=== PATIENT | female | born 1950 | race Caucasian/White ===

== ENCOUNTER 2024-08-05 10:39 | Emergency (ER) | payer MEDICARE, OTHER, SELFPAY ==
[2024-08-05] VITALS (17 sets, daily range): BP systolic 101–144; BP diastolic 70–90; PULSE 100–114; RESP 18–20; TEMP 36.6–37; O2SAT 91–98; BMI 34.3
--- NOTE | 2024-08-05 11:04 | CRLHL7_ITS ---
For Patients: As a result of the Century Cures Act, medical imaging exams and procedure reports are released immediately into your electronic medical record. You may view this report before your referring provider. If you have questions, please contact your health care provider. Indication: Hip and right leg pain, fall 1 ago Technique: Right femur 5 views. Comparison: Concurrent hip radiograph Findings: Bones: Diffuse osteopenia may limit evaluation of subtle nondisplaced fractures. There is a subtle linear lucency within the right greater trochanter which may represent superimposition of overlapping tissue. Alignment is normal. Joint spaces: Moderate medial and lateral compartment joint space narrowing of the knee. Soft tissues: Vascular calcifications. Impression: Diffuse osteopenia may limit evaluation of subtle nondisplaced fractures. There is a subtle linear lucency within the right greater trochanter which may represent superimposition of overlapping tissue. Consider dedicated right hip CT for further evaluation if there is continued clinical concern for acute fracture. Dictated by Reyna Perdomo MD @ 08/05/2024 12:03:02 PM (Electronically Signed)
--- NOTE | 2024-08-05 11:04 | CRLHL7_ITS ---
For Patients: As a result of the Century Cures Act, medical imaging exams and procedure reports are released immediately into your electronic medical record. You may view this report before your referring provider. If you have questions, please contact your health care provider. Indication: Hip and right leg pain, fall 1 week ago Technique: Pelvis 1 view Comparison: Concurrent right femur radiographs Findings: Bones: Diffuse osteopenia limits evaluation of subtle nondisplaced fractures. There is a linear lucency within the right greater trochanter which may represent superimposition of overlapping tissues. Alignment is normal. No fractures or bone lesions. Joint spaces: Mild bilateral hip degenerative change. Soft tissues: Vascular calcifications. Impression: Diffuse osteopenia limits evaluation of subtle nondisplaced fractures. There is a linear lucency within the right greater trochanter which may represent superimposition of overlapping tissues. Consider further evaluation with dedicated right hip CT if there is continued clinical concern for acute fracture Dictated by Reyna Perdomo MD @ 08/05/2024 12:05:40 PM (Electronically Signed)
--- NOTE | 2024-08-05 11:06 | ED_ITS ---
HPI - Extremity Injury (Lower) General Date Seen: 08/05/24 Chief Complaint: Extremity Pain/Injury, Lower Stated Complaint: R leg pain Time Seen by Provider: 08/05/24 10:54 Source: patient Mode of arrival: ambulatory Limitations: no limitations History of Present Illness HPI Narrative: Patient is a 73-year-old female presenting to emergency department for right leg and hip pain. She states a week ago she had a slight dizzy spell causing her to fall on her right side. Denies hitting her head. She has continued to have pain since then but mostly in the thigh. Denies any knee pain. Has been able to ambulate since the home. No further episodes of dizziness. Denies weakness, numbness. She is want to get checked out make sure there are no underlying small fractures. Related Data Allergies Allergy/AdvReac Type Severity Reaction Status Date / Time No Known Drug Allergies Allergy Verified 08/05/24 14:51 Review of Systems Narrative: Pertinent systems reviewed and were negative unless stated in HPI Exam Narrative: Exam Narrative: Const: Well-nourished, Well-developed, in mild distress Eyes: PERRL, no conjunctival injection, and symmetrical lids HENT: Atraumatic external nose and ears. Moist mucous membranes. Neck: Symmetric, trachea midline, No thyromegaly. CVS: RRR, No murmurs or gallops. Peripheral pulses 2+ and equal in all extremities RESP: Unlabored respiratory effort. Clear to auscultation bilaterally. GI: Nontender/Nondistended, No rebound or guarding. MSK:Extremities w/o deformity, Normal Active ROM, tenderness to palpation to the bruised area of the right thigh. Mild swelling noted to right leg Skin: Warm, Dry. Large bruise noted lateral right thigh Neuro: Normal Muscle tone, No focal neurological deficits. Psych: Awake, Alert, & Oriented x3. Appropriate mood and affect. Const: Vital Signs, click to edit/add: Vital Signs - 24 hr 08/05/24 10:48 08/05/24 11:56 08/05/24 12:04 Temperature 97.9 F 98.6 F Pulse Rate 103 H Pulse Rate [Pulse Oximeter] 100 104 H Respiratory Rate 18 20 Blood Pressure [Ri ght Forearm] 101/70 144/90 H Pulse Oximetry 93 94 94 Oxygen Delivery Me thod Room Air Room Air 08/05/24 12:15 11/07/24 12:30 08/05/24 12:45 Temperature Pulse Rate 105 H 109 H 109 H Pulse Rate [Pulse Oximeter] Respiratory Rate Blood Pressure [Ri ght Forearm] Pulse Oximetry 95 95 92 Oxygen Delivery Me thod 08/05/24 13:01 08/05/24 13:15 08/05/24 13:32 Temperature Pulse Rate 108 H 105 H 114 H Pulse Rate [Pulse Oximeter] Respiratory Rate Blood Pressure [Ri ght Forearm] Pulse Oximetry 92 91 93 Oxygen Delivery Me thod 08/05/24 13:45 08/05/24 14:00 08/05/24 14:24 Temperature Pulse Rate 107 H 107 H Pulse Rate [Pulse Oximeter] Respiratory Rate Blood Pressure [Ri ght Forearm] Pulse Oximetry 94 96 95 Oxygen Delivery Me thod 08/05/24 14:55 08/05/24 15:00 08/05/24 15:15 Temperature Pulse Rate 111 H 111 H 101 H Pulse Rate [Pulse Oximeter] Respiratory Rate Blood Pressure [Ri ght Forearm] Pulse Oximetry 94 96 96 Oxygen Delivery Me thod 08/05/24 15:30 08/05/24 15:45 Temperature Pulse Rate 104 H 103 H Pulse Rate [Pulse Oximeter] Respiratory Rate Blood Pressure [Ri ght Forearm] Pulse Oximetry 97 98 Oxygen Delivery Me thod Course Vital Signs Vital signs: Initial Vital Signs Temperature 97.9 F 08/05/24 10:48 Temperature Source Temporal Artery Scan 08/05/24 10:48 Pulse Rate 100 08/05/24 10:48 Respiratory Rate 18 08/05/24 10:48 Blood Pressure 101/70 08/05/24 10:48 Blood Pressure Mean 80 08/05/24 10:48 Pulse Oximetry 93 08/05/24 10:48 Oxygen Delivery Method Room Air 08/05/24 10:48 Vital Signs Temperature 97.9 F 08/05/24 10:48 Pulse Rate 100 08/05/24 10:48 Respiratory Rate 18 08/05/24 10:48 Blood Pressure 101/70 08/05/24 10:48 Pulse Oximetry 93 08/05/24 10:48 Oxygen Delivery Method Room Air 08/05/24 10:48 Temperature 98.6 F 08/05/24 11:56 Pulse Rate 103 H 08/05/24 15:45 Respiratory Rate 20 08/05/24 11:56 Blood Pressure 144/90 H 08/05/24 11:56 Pulse Oximetry 98 08/05/24 15:45 Oxygen Delivery Method Room Air 08/05/24 11:56 MDM - Extremity Injury (Lower) MDM Narrative Medical decision making narrative: Patient is a 73-year-old female initially presenting for right hip pain only. Her pain was notable mainly to the area of bruising. This is about the mid lateral thigh. Did an x-ray of the right hip and right femur. X-rays returned showing a possible home greater trochanteric fracture. CT scan will be ordered. After the x-rays were done of the patient started complaining about some minor shortness of breath. She states this shortness of breath is been going on for past day or 2. She states she does have a history of being short of breath but this seems worse. She is satting 94% on room air. Gone through her chart and epic she was previously on Lasix for CHF and lisinopril, warfarin, metoprolol for hypertension an a paroxysmal AFib. She states she is currently only taking a statin. Last saw her primary care provider back in April. The differential diagnosis of shortness of breath is broad and includes common etiologies such as COPD, asthma, pneumonia, viral syndrome, etc. More serious etiologies c onsidered include PE, CHF, coronary artery disease, pneumothorax, aortic dissection, aortic aneurysm. She does have some mild swelling right lower leg which initially was likely from the of fall the considering the shortness of breath I will do an ultrasound to rule out DVT. Also do an EKG, troponin, CBC, BMP, BNP, COVID/flu/RSV and will CT the right hip. She does have asthma but lungs sound relatively clear and asthma exacerbation seems unlikely. She does take care albuterol at home for it. D-dimer came back elevated the CTA will be ordered of the chest. BNP is elevated at 41,400. Her lower extremity swelling is located mostly just to the right leg. CT scan of the right hip shows a comminuted nondisplaced greater trochanteric fracture. She has been able to ambulate of this for the past week. He her troponin came back elevated at 1.40. I was able to look at her previous charge showing she had am NSTEMI at the [facility] related to rhabdomyolysis. No heart catheterization was done but an echo at that time showing EF 43%. She is not currently taking Lasix she states. I spoke to the on-call dairy tester at [place] and due to her declining troponin from 1.4 to 1.3 he is comfortable the patient being discharged. He does see in his history that she has a mechanical heart valve. When I spoke to a she was not aware she had 1 or not. He states if she does have this may can of heart valve she really needs to be back on warfarin. Also recommends and outpatient echocardiogram. I did spoke to Orthopedics about her fracture and they are agreeable that she is safe for discharge. She will follow up with them outpatient. Is recommended she does weight-bearing as tolerated. We did ambulate the patient in she did move slow but her and her niece are comfortable with discharge at this time. Did offer possible admission. Would prefer to be discharged. I spoke to her about needing to have close follow-up with her primary care provider. The patient's niece, who is staying with her for the weekend, will call tomorrow to try and set up an appointment. We also left a message with the patient's primary care provider that she needs close follow-up. Will that them restart the patient's warfarin. I will though prescribe her oxycodone for her pain. Did explained that this can cause increased chance of falls and to be careful when taking it. They state they understand. Lab Data Labs: Lab Results 08/05/24 08/05/24 08/05/24 Range/Units 12:14 12:25 12:45 WBC 8.90 (4.50-11.00) K/uL RBC 4.53 (4.00-5.20) m/uL Hgb 13.9 (12.0-16.0) gm/dL Hct 43.1 (33.0-51.0) % MCV 95 (80-100) fL MCH 31 (26-34) pg MCHC 32 (32-36) gm/dL RDW Coeff of Gilbert 13.2 (11.5-15.5) % Plt Count 169 (140-440) K/uL Neut % (Auto) 78.6 H (42.0-72.0) % Lymph % (Auto) 12.6 L (20-44) % [place] % (Auto) 7.5 (0.0-11.0) % Eos % (Auto) 0.7 (0.0-7.0) % Baso % (Auto) 0.4 (0.0-3.0) % Neut # (Auto) 7.00 (1.7-7.0) K/uL Lymph # (Auto) 1.10 (0.90-2.90) K/uL [place] # (Auto) 0.70 (0.00-0.90) K/UL Eos # (Auto) 0.06 (0.00-0.50) K/uL Baso # (Auto) 0.04 (0.00-0.30) K/uL Abs Immat Gran (auto) 0.02 (0.00-0.30) K/uL Imm/Tot Granulo (auto) 0.2 % D-Dimer Quant (PE/DVT) 1.66 H (0.00-0.50) ug/ml Sodium 136 (135-149) mmol/L Potassium 3.6 (3.6-5.1) mmol/L Chloride 100 (96-114) mmol/L Carbon Dioxide 26 (20-32) mmol/L Anion Gap 10 (7-15) mEq/L BUN 20 (7-30) mg/dL Creatinine 1.0 (0.5-1.5) mg/dL Estimated Creat Clear 41.97 Estimated GFR 59 ml/min Glucose 150 H (60-115) mg/dL Calcium 9.0 (8.4-10.6) mg/dL Troponin I 1.40 H* (0.01-0.04) ng/mL NT-Pro-B Natriuret Pep 36457 pg/mL SARS-CoV-2 (PCR) Negative SARS-CoV-2 (Negative) Influenza Type A (PCR) Negative PCR FLU A (Negative) Influenza Type B (PCR) Negative PCR FLU B (Negative) RSV (PCR) Negative PCR RSV (Negative) Lab Acknowledgement Test Added POC Troponin I 1.32 H (0.01-0.04) ng/ml 08/05/24 Range/Units 14:42 WBC (4.50-11.00) K/uL RBC (4.00-5.20) m/uL Hgb (12.0-16.0) gm/dL Hct (33.0-51.0) % MCV (80-100) fL MCH (26-34) pg MCHC (32-36) gm/dL RDW Coeff of Gilbert (11.5-15.5) % Plt Count (140-440) K/uL Neut % (Auto) (42.0-72.0) % Lymph % (Auto) (20-44) % [place] % (Auto) (0.0-11.0) % Eos % (Auto) (0.0-7.0) % Baso % (Auto) (0.0-3.0) % Neut # (Auto) (1.7-7.0) K/uL Lymph # (Auto) (0.90-2.90) K/uL [place] # (Auto) (0.00-0.90) K/UL Eos # (Auto) (0.00-0.50) K/uL Baso # (Auto) (0.00-0.30) K/uL Abs Immat Gran (auto) (0.00-0.30) K/uL Imm/Tot Granulo (auto) % D-Dimer Quant (PE/DVT) (0.00-0.50) ug/ml Sodium (135-149) mmol/L Potassium (3.6-5.1) mmol/L Chloride (96-114) mmol/L Carbon Dioxide (20-32) mmol/L Anion Gap (7-15) mEq/L BUN (7-30) mg/dL Creatinine (0.5-1.5) mg/dL Estimated Creat Clear Estimated GFR ml/min Glucose (60-115) mg/dL Calcium (8.4-10.6) mg/dL Troponin I 1.30 H* (0.01-0.04) ng/mL NT-Pro-B Natriuret Pep pg/mL SARS-CoV-2 (PCR) (Negative) Influenza Type A (PCR) (Negative) Influenza Type B (PCR) (Negative) RSV (PCR) (Negative) Lab Acknowledgement POC Troponin I (0.01-0.04) ng/ml Imaging Data X-ray right hip: Attestation: I have reviewed the pertinent imaging results. Radiologist's impression: Diffuse osteopenia limits evaluation of subtle nondisplaced fractures. There is a linear lucency within the right greater trochanter which may represent superimposition of overlapping tissues. Consider further evaluation with dedicated right hip CT if there is continued clinical concern for acute fracture Dictated by Reyna Perdomo MD @ 08/05/2024 12:05:40 PM X-ray right femur: Attestation: I have reviewed the pertinent imaging results. Radiologist's impression: Diffuse osteopenia may limit evaluation of subtle nondisplaced fractures. There is a subtle linear lucency within the right greater trochanter which may represent superimposition of overlapping tissue. Consider dedicated right hip CT for further evaluation if there is continued clinical concern for acute fracture. Dictated by Reyna Perdomo MD @ 08/05/2024 12:03:[address] scan right hip: Attestation: I have reviewed the pertinent imaging results. Radiologist's impression: Nondisplaced mildly comminuted fracture of the greater trochanter with surrounding soft tissue stranding. Please note that all CT scans at this facility use dose modulation, iterative reconstruction, and/or weight-based dosing when appropriate to reduce radiation dose to as low as reasonably achievable. Dictated by Chelsie Brewer MD @ 08/05/2024 1:23:03 PM Ultrasound right lower extremity: Attestation: I have reviewed the pertinent imaging results. Radiologist's impression: No evidence of acute deep venous thrombosis in the right lower extremity. Dictated by Andrea Matta MD @ 08/05/2024 1:00:36 PM CTA chest: Attestation: I have reviewed the pertinent imaging results. Radiologist's impression: 1. Trace pulmonary edema and bilateral pleural effusions. 2. No evidence of pulmonary embolus. Dictated by Chirag Honeycutt MD @ 08/05/2024 3:04:37 PM Please note that all CT scans at this facility use dose modulation, iterative reconstruction, and/or weight-based dosing when appropriate to reduce radiation dose to as low as reasonably achievable. Dictated by: Chirag Honeycutt MD @ 08/05/2024 15:05:23 ECG Data Attestation: I personally reviewed and interpreted this ECG as follows: Prior ECG tracings: not available for review Interpretation: Initial EKG at 12:50: Sinus tachycardia with rate of 106 beats per minute, normal intervals, normal axis, no ST or T-wave abnormalities. V1 V2 show Q- waves Repeat EKG done at 14:05: Sinus tachycardia with rate 107 beats per minute, Q- waves still seen and V1 and V2. PVCs. Normal axis, normal intervals, no ST or T-wave abnormalities Discharge Plan Discharge Clinical Impression: Closed fracture of greater trochanter of femur Qualifiers: Encounter type: initial encounter Fracture alignment: nondisplaced Laterality: right Qualified Code(s): S72.114A - Nondisplaced fracture of greater trochanter of right femur, initial encounter for closed fracture CHF (congestive heart failure) Qualifiers: Heart failure type: unspecified Heart failure chronicity: chronic Qualified Code(s): I50.9 - Heart failure, unspecified Patient Disposition: Home, Self-Care Condition: Stable Additional Instructions: See your CT scan shows a nondisplaced hip fracture. Orthopedics states he should wait bear as tolerated as that is better than keeping the leg held up in the air. Follow-up with [facility]. Call them at . Use the oxycodone as needed for pain but make sure you were careful with it as it can increase her risk of falls. Can either take a whole pill or half a pill. Do recommend trying Tylenol and ibuprofen 1st for the pain. You also appear to have congestive heart failure. I would speak to your primary care provider about restarting Lasix regularly. There was some fluid in your lungs that is likely was causing her mild shortness of breath and your BNP, which is a marker for CHF, is quite elevated at 41,400. You did have an elevated troponin but on recheck it actually decreased. Cardiology please or safe for discharge but does think you need an outpatient echocardiogram. Also they believe you need to be back on the warfarin regular due to your mechanical heart valve. Speak to your primary care provider about all of this. Return to emergency department for any new or worsening symptoms. Follow Up/Referrals: Provider,Not a Local [Primary Care Provider] - Stand Alone Forms: [employer] Info Instructions
--- OUTSIDE RECORDS SUMMARY | 2024-08-05 11:54 | XMS_ITS | Clinical Summary ---
Author Organization [email or web address] [facility] Address [place], [place] [address] Care Team Providers Care Licensed Embalmer Name Role Phone Bob Harrison V Unavailable [phone] Shruti Sheikh DO Primary Care Provider Allergies Active Allergy Reactions Criticality Noted Date Comments Cats (Fur, Dander, Saliva) Shortness Of Breath 04/24/2018 Erythromycin Diarrhea 09/30/2006 Peanut Laryngospasm 09/30/2006 MY THROAT SWELLS UP D And C Red No.22 Tongue Swelling 10/18/2008 Fsldvyt-Yra-Pgp Reductase Inhibitors Arthralgia 05/13/2012 Sulfa (Sulfonamide Antibiotics) Respiratory Distress 09/30/2006 Cimetidine Rash 09/30/2006 Medications Medication Sig Dispensed Refills Start Date End Date Status aspirin (ECOTRIN) 81 mg enteric coated tablet Take 81 mg by mouth once daily with a meal. Active acetaminophen (TylenoL) 325 mg tablet Take 650 mg by mouth every 6 hours if needed. Max acetaminophen dose: 4000mg in 24 hrs. Active metoprolol tartrate (LOPRESSOR) 100 mg tabletIndications:Es sential hypertension Take 0.5 Tablets (50 mg) by mouth two times daily. 90 Tablet 3 11/05/2023 Active lisinopriL (PRINIVIL; ZESTRIL) 10 mg tabletIndications:Es sential hypertension Take 1 Tablet (10 mg) by mouth once daily. 90 Tablet 3 11/05/2023 Active omeprazole (PRILOSEC) 20 mg Delayed-Release capsuleIndications:G astroesophageal reflux disease without esophagitis Take 1 Capsule (20 mg) by mouth once daily before a meal. 90 Capsule 3 11/05/2023 Active pravastatin (PRAVACHOL) 40 mg tabletIndications:Hy perlipidemia, unspecified hyperlipidemia type Take 1 Tablet (40 mg) by mouth at bedtime. 90 Tablet 3 11/05/2023 Active hospital bedIndications:Fall in home, subsequent encounter,Chronic atrial fibrillation (HC),Edema, unspecified type,Gastroesophagea l reflux disease without esophagitis,History of falling,Does mobilize using walker Hospital bed with mattress and 1/2 rails. Semi-electric bed. Length of need 99 months. Bed database manager:no 1 Each 11/05/2023 Active Chair LiftIndications:Fall in home, subsequent encounter,Edema, unspecified type,Gastroesophagea l reflux disease without esophagitis,Does mobilize using walker For home use. Using walker for ambulation. 1 Each 11/05/2023 Active albuterol HFA (ProAir HFA) 90 mcg/actuation inhalerIndications:M ild persistent asthma without complication Inhale 2 Puffs by mouth every 6 hours if needed for Shortness of Breath 1st choice or Wheezing 1st choice. 42.5 g 2 02/04/2024 Active cholecalciferol, Vitamin D3, (Vitamin D-3) 5,000 unit tab tabletIndications:Vi tamin D deficiency Take 1 Tablet (5,000 units) by mouth once daily. 90 Tablet 1 02/04/2024 Active fluticasone (50 mcg per actuation) nasal solution (FLONASE)Indications :Allergic rhinitis, unspecified seasonality, unspecified trigger Inhale 1 Furlong to both nostrils once daily. 48 g 3 02/04/2024 Active fluticasone propionate (Flovent HFA) 44 mcg/Actuation inhalerIndications:A llergic rhinitis, unspecified seasonality, unspecified trigger Inhale 2 Puffs by mouth two times daily. 31.8 g 3 02/04/2024 Active furosemide (LASIX) 40 mg tabletIndications:Ed huber, unspecified type Take 1 Tablet (40 mg) by mouth once daily if needed (leg swelling). 30 Tablet 3 05/12/2024 Active cetirizine (ZyrTEC) 10 mg tabletIndications:No n-seasonal allergic rhinitis, unspecified trigger Take 1 Tablet (10 mg) by mouth once daily. 90 Tablet 3 05/12/2024 Active warfarin (COUMADIN) 2.5 mg tabletIndications:Ch ronic atrial fibrillation (HC),Anticoagulation monitoring, INR range 2-3 Take by mouth;1.25 mg (2.5 mg x 0.5) every Dede; 2.5 mg (2.5 mg x 1) all other days OR as directed. 05/13/2024 Active Active Problems Problem Noted Date Diagnosed Date Does mobilize using walker 11/05/2023 Acute cystitis with hematuria 09/26/2023 Fall 09/25/2023 Confusion 09/25/2023 Failure to thrive in adult 09/25/2023 Vitamin D deficiency 06/17/2023 Bilateral leg edema 09/05/2020 Fall at home 09/05/2020 Hoarding behavior 08/09/2020 Overview (08/15/2021): Last Assessment & Plan: Myocardial infarction type 2 08/05/2020 Overview (08/15/2021): Type II. Intertriginous candidiasis 08/05/2020 Overview (08/15/2021): Last Assessment & Plan: History of falling 08/05/2020 Overview (08/15/2021): Last Assessment & Plan: S/P aortic valve replacement with prosthetic emilio ve 11/02/2018 Diabetic peripheral neuropathy 04/24/2018 Colonoscopy refused 04/24/2018 JERICHO 04/18/2017, AHI 29 06/05/2017 Overview (06/17/2023): Doesn't use her CPAP, trouble tolerating. Fatigue 04/04/2017 Hematuria 03/16/2017 Chronic neck and back pain 08/18/2015 Morbid obesity 05/08/2015 Chronic atrial fibrillation 02/09/2015 DM (diabetes mellitus), type 2 01/13/2014 Anticoagulation monitoring, INR range 2-3 2008 POST OP ATRIAL FIBRILLATION 09/05/2007 SEVERE - 22MM ATS AVR ON 09/02/07 + ELIZABETH LIGATI ON 09/01/2007 Overview (09/07/2007): -echo 08/12/07: severe : pk grad 102 mmHg, mean grad 60 mmHg, PITO 0.6 cm2 EF 45-50% -Normal coronaries -AVR with #22 ATS Mechanical Valve - 09/02/07 and Ligation of LA Appendage -For Mechanical Aortic Valve lifelong anticoagulation needed with INR goal of 2.5 (range 2.0-3.0). ASA 81mg. -Lifelong endocarditis precautions with SBE prophylaxis. ABNORMAL STRESS TEST 09/01/2007 Overview (09/07/2007): - 07/29/07 Adenosine Myoview * med size area of mild-mod ischemic in inferior wall extending from base to apex although felt that specificity of finding was decreased by sig. 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 Last dexa 04/2024 - some improvement. Continue prolia 3 more years. Allergic rhinitis, cause unspecified 09/30/2006 Insomnia, unspecified 09/30/2006 Unspecified asthma(493.90) 09/30/2006 Esophageal reflux 09/30/2006 Resolved Problems Problem Noted Date Diagnosed Date Resolved Date Calculus of gallbladder with out mention of cholecystitis or obstruction 10/27/2008 05/28/2017 Overview (10/27/2008): Now s/p lap hola by Dr. Whaley 10/27/08. Esophageal reflux 09/30/2006 09/08/2007 Atrial fibrillation 02/08/20 16 Encounters Date Type Department Care Team Description 08/04/[address] [phone] Shruti Sheikh DO Anticoagulation (Lab orders) 07/22/[address] [phone] Shruti Sheikh DO Anticoagulation (INR OVERDUE REMINDER #4 ) 07/08/[address] [phone] Shruti Sheikh DO Anticoagulation (OVERDUE #3 Reminder ) 06/24/[address] [address] Shruti Sheikh DO Anticoagulation (INR OVERDUE REMINDER #2 ) 05/24/[address] [phone] Shruti Sheikh DO Results 05/17/2024 2:30 PM CDT Ancillary Procedure [address] [phone] 05/17/2024 1:40 PM CDT Office Visit [facility] [address] [place] [phone] Tameka Edmonds, VETO Eye Exam (Diabetic) 05/17/2024 Travel 05/12/2024 1:00 PM CDT Office Visit [address] [phone] Shruti Sheikh DO Medicare ANNUAL (subsequent) Visit; Diabetes 05/12/2024 Anticoagulation (warfarin) [address] [phone] , [facility] [place] Anticoagulation (Provider visit) 05/12/2024 Travel from Last 3 Months Immunizations Name Administration Dates Next Due COVID-19 VACCINE SPIKEVAX (M ODERNA 50MCG/0.5ML) 12YO+ PFS 07/23/2023 COVID-19 vaccine (Pfizer-Bio NTech 30mcg/0.3mL) 12YO+ BIVALENT PF, MDV 11/07/2022 COVID-19 vaccine (Pfizer-Bio NTech 30mcg/0.3mL) 12YO+ CRISTINA-SUCROSE PF, MDV 03/18/2022 COVID-19 vaccine (Pfizer-Bio NTech 30mcg/0.3mL) PF, MDV 08/15/2021,01/30/2021,01/09/2021 Hepatitis B (Adult) 01/03/1994, 3,02/21/1993,1992 Influenza A (H1N1), Inactiva kamilla (Age >=3 Years) 08/29/2009 Influenza, High-dose Inactivated 018,07/08/2016,08/09/2015,2013 Influenza, IIV3 (Age >=3 years) 07/22/20 13,08/25/2012,08/07/2011,2009,06/29/2009,08/31/2008,07/20/2007 Influenza, Inactivated AIIV4 (Age 65+ Years) Preserv Free 06/11/2023,11/07/2022,07/18/2021,2019 Influenza, Inactivated IIV3 (Age 65+ Years) Preserv Free 07/31/2017 Pneumococcal Poly,23-Valent (Pneumovax) 04/14/2014,07/22/1997 Pneumococcal conj 13-Valent (Prevnar 13) 09/04/2015 Td (Age >=7 Years) 10/27/2002,09/06/1992 Family History Medical History Relation Name Comments Cancer-colon Brother age 60's Heart Disease Father ASCVD Asthma Mother Heart Disease Mother ??? Stroke Other 1 UNCLES Diabetes Other 2 FAMILY H/O ([facility], nephew) Hypertension Other 3 FAMILY H/O Cancer Other 4 OVARIAN AUNT Cancer Other 5 STOMACH GRANDFA THER Cancer-colon Other 6 cousin Cancer-breast No Family History Relation Name Status Comments Brother Father Mother Other 1 Other 2 Other 3 Other 4 Other 5 Other 6 Social History Tobacco Use Types Packs/Day Years Used Date Smoking Tobacco: Former Cigarettes 1 20 0 09/29/1981 - 09/29/2001 Smokeless Tobacco: Never Tobacco Cessation:Counseling Given: Not Answered Alcohol Use Standard Drinks/Week Comments No 0 (1 standard drink = 0.6 oz pur e alcohol) PHQ-2 Answer Date Recorded PHQ-2 TOTAL SCORE 0 05/12/2024 Social Connections Answer Date Recorded Do you often feel lonely or isolated from those around you? 0 09/25/2023 Financial Resource Strain Answer Date R ecorded Difficulty of Paying Living Expenses 3 09/25/2023 Difficulty of Paying Living Expenses Not on file 09/25/2023 Food Insecurity Answer Date Recorded Do you worry your food will run out before you are able to buy more? 1 09/25/2023 Transportation Needs Answer Date Record ed Does lack of transportation keep you from medica l appointments? 1 09/25/2023 Does lack of transportation keep you from work, meetings or getting things that you need? 1 09/25/2023 Housing Stability Answer Date Recorded What is your housing situation today? 1 09/25/2023 Sex and Gender Information Value Date Recorded Sex Assigned at Not on file Gender Identity Not on file Sexual Orientation Not on file Obstetrics History Last Filed Vital Signs Vital Sign Reading Time Taken Comments Blood Pressure 136/84 05/12/2024 1:22 PM CDT Pulse 77 05/12/2024 1:22 PM CDT Temperature 36.8 ??C (98.3 ??F) 09/26/2023 8:00 AM CS T Respiratory Rate 20 05/12/2024 1:22 PM CDT Oxygen Saturation 96% 05/12/2024 1:22 PM CDT Inhaled Oxygen Concentration - - Weight 117.1 kg (258 lb 3.2 oz) 05/12/2024 1:22 PM CDT Height 162.6 cm (5' 4) 05/12/2024 1:22 PM CDT Body Mass Index 44.32 05/12/2024 1:22 PM CDT Plan of Treatment Upcoming Encounters Date Type Department Care Team (Late st Contact Info) Description 08/09/2024 1:30 PM INSIDE UPHOLSTERER Orders Only [address] [phone] Lab, [place] 08/10/2024 1:00 PM INSIDE UPHOLSTERER Nurse/Clinic Staff Only [address] [place] [phone] 11/17/2024 1:00 PM INSIDE UPHOLSTERER [address] [phone] Shruti Sheikh, [address] [place] [phone] Health Maintenance Due Date Last Done Comments Tdap 12/15/1959 Colonoscopy through age 75 1993 Zoster (shingles) series for age 50+ (1 of 2) 1998 Tetanus booster 10/27/2012 10/27/2002, 09/06/1992 RSV vaccine for adults or (1 - 1-dose 75+ series) 12/15/2023 COVID-19 vaccine series ( season) 2024 07/23/2023, 11/07/2022, 03/18/2022, Additional history exists Influenza for age 65+ 05/30/2024 06/11/2023 , 11/07/2022, 07/18/2021, Additional history exists BMI (ht and wt on same day) for age 18+ 05/12/2025 05/12/2024, 11/05/2023, 06/11/2023, Additional history exists Depression screening for age 12+ 05/13/2025 05/13/2024, 05/12/2024, 05/12/2024, Additional history exists Medicare Wellness for age 65+ 05/13/2025, 11/07/2022, 08/15/2021, Additional history exists Lipids for age 45-75 05/12/2029 05/12/2024, 10/16/2022, 08/15/2021, Additional history exists Pneumococcal series for age 65+ Completed 09/04/2015, 04/14/2014, 07/22/1997 Hepatitis C screening for ag e 18-79 Completed 03/12/2017 DEXA/DXA scan for age 65+ Completed 05/17/2024, 03/2017 Medical Devices Implanted Type Area Plant Health Care Technician Device Identifier Shelf Expiration Date Model / Serial / Lot Anw Hh [id number] Implanted:Qty: 1 on 09/02/2007 at [facility] Explanted:at [facility] (Quantity not on file) Open Heart Implants [facility] [id number] / [id number] / Procedures Procedure Name Priority Date/Time Associated Diagnosis Comments XR DXA BONE DENSITY 2 SITES AXIAL Routine 05/17/2024 3:07 PM CDT Senile osteoporosis URINE ALBUMIN TO CREATININE RATIO, RANDOM Routine 05/12/2024 2:07 PM CDT Type 2 diabetes mellitus without complication, without long-term current use of insulin (HC) CBC WITH AUTO DIFFERENTIAL Routine 05/12/2024 12:58 PM CDT Type 2 diabetes mellitus without complication, without long-term current use of insulin (HC) LIPID PANEL W REFLEX MEASURED LDL Routine 05/12/2024 12:58 PM CDT Type 2 diabetes mellitus without complication, without long-term current use of insulin (HC) TSH WITH REFLEX Routine 05/12/2024 12:58 PM CDT Type 2 diabetes mellitus without complication, without long-term current use of insulin (HC) COMP METABOLIC PANEL Routine 05/12/2024 12:58 PM CDT Type 2 diabetes mellitus without complication, without long-term current use of insulin (HC) CBC WITH AUTO DIFFERENTIAL Routine 05/12/2024 12:58 PM CDT Type 2 diabetes mellitus without complication, without long-term current use of insulin (HC) HEMOGLOBIN A1C MONITORING (POCT) Routine 05/12/2024 12:58 PM CDT Type 2 diabetes mellitus without complication, without long-term current use of insulin (HC) PROTIME-INR STAT 05/12/2024 12:58 PM CDT Chronic atrial fibrillation (HC) Anticoagulation monitoring, INR range 2-3 ANTI HCV Routine 03/12/2017 12:59 PM CDT Need for hepatitis C screening test from Last 3 Months or Most Recently Relevant to Health Maintenance Results * XR DXA BONE DENSITY 2 SITES AXIAL (05/17/2024 3:07 PM CDT) Anatomical Region Laterality Modality Spine, HIPS, HIPL, HIPR Computed Radiography Impressions 05/19/2024 6:30 AM CDT Osteoporosis. RECOMMENDATIONS: ??The National Osteoporosis Foundation recommends pharmacologic treatment for patients with T-scores of -2.5 or less, patients with prior history of fragility fractures, or patients with 10-year probability of greater than 3% at hips or greater than 20% of suffering major osteoporotic fractures. Recommend continued optimization of calcium and vitamin D intake through dietary means and/or supplementation and regular exercise. JUAN R MALDONADO M.D. [email or web address] [email or web address]/cale Narrative 05/19/2024 6:30 AM CDT For Patients: Results are automatically released to your [employer] account once available, in compliance with federal regulations. This means that you may see your results before your provider has had a chance to review them. Please allow 2-3 business days for your provider to comment on the results. XR DXA Bone Mineral Density (BMD) EXAM LOCATION: [address] [phone] PATIENT NAME: Charlotte Boles DATE OF : 1950 EXAM DATE: 05/17/2024 REQUESTING PROVIDER: Shruti Sheikh, DO GENDER AT : female HEIGHT: 64 inches WEIGHT: 258 pounds MENOPAUSAL STATUS: Postmenopausal ?? RACE/ETHNICITY: White ?? RISK FACTORS: Height Loss (2 inches or more), Menopause < Age 40, Smoking (prior), White Race, Estrogen Therapy and Diabetes type 2 CURRENT MEDICATION FOR BONE LOSS: Denosumab (Prolia) INDICATION: Senile osteoporosis COMPARISON DATE(S): 2016 DXA scans are compared to prior studies for a patient only when the two (or more) studies were performed on the same scanner. It is not possible to compare data generated on one scanner to data from another because there are not standards in DXA equipment. This applies even if the two scanners are made by the same food mixer repairer. PROCEDURE: Dual-energy x-ray absorptiometry performed with routine technique. Reporting is completed in the form of a T-score. The T-score represents the standard deviation from peak bone mass based on young healthy adult. A Z-score is used for diagnosis in premenopausal women, and for men under the age of 50. FINDINGS: RESULT LUMBAR SPINE L1 - L4 BMD: 0.860 g/cm2 T-Score: - 2.7 Z-Score: - 2.1 Trending: ??Change from prior in 2017: ??Increase 13.6%. ?? RESULTS FEMUR Left femoral neck BMD: 0.643 g/cm2 T-Score: - 2.8 Z-Score: - 1.7 Right femoral neck BMD: 0.626 g/cm2 T-Score: - 3.0 Z-Score: - 1.8 Left total hip BMD: 0.618 g/cm2 T-Score: - 3.1 Z-Score: - 2.2 Right total hip BMD: 0.616 g/cm2 T-Score: - 3.1 Z-Score: - 2.2 Trending: ??Total Neck Mean BMD: 0.635 g/cm2 ?? Change from prior in 2017: ??Increase 0.3%. ?? WHO criteria: Normal: T-score at or above -1 SD Osteopenia: T-score between -1.1 and -2.4 SD Osteoporosis: T-score at or below -2.5 SD Shruti Sheikh DO DEXA * (ABNORMAL) URINE ALBUMIN TO CREATININE RATIO, RANDOM (05/12/2024 2:07 PM CDT) ALB RAND URINE 69.6 mg/L 05/13/2024 2:31 PM CDT [facility] CREATININE,URIN E 1.38 g/L 05/13/2024 2:31 PM CDT [facility] ALBUMIN TO CREATININE RATIO,RAND UR 50.4(H) <30.0 mg/g creat 05/13/2024 2:31 PM CDT [facility] Urine URINE SPECIMEN / Unknown Non-Blood / Unknown 05/12/2024 2:07 PM CDT 05/12/2024 2:07 PM CDT [facility] - 05/13/2024 2:31 PM CDT If Albumin to Creatinine Ratio is elevated, consider the following: ? Elevations seen with incipient nephropathy associated ?? with diabetes mellitus or hypertension. Stress, exercise,hematuria, ?? and urinary tract infection may also produce elevated results. If clinically indicated, confirm with ?24 Hour Albumin to Creatinine Ratio. ?? Shruti Sheikh DO URINE [facility] [address] [place] [address], * (ABNORMAL) CBC WITH AUTO DIFFERENTIAL (05/12/2024 12:58 PM CDT) WHITE BLOOD COUNT 7.3 4.5 - 11.0 thou/cu mm 05/12/2024 1:24 PM [facility] RED BLOOD COUNT 4.89 4.00 - 5.20 mil/cu mm 05/12/2024 1:24 PM [facility] HEMOGLOBIN 15.2 12.0 - 16.0 g/dL 05/12/2024 1:24 PM [facility] HEMATOCRIT 46.2 33.0 - 51.0 % 05/12/2024 1:24 PM [facility] MCV 95 80 - 100 fL 05/12/2024 1:24 PM [facility] MCH 31.1 26.0 - 34.0 pg 05/12/2024 1:24 PM [facility] MCHC 32.9 32.0 - 36.0 g/dL 05/12/2024 1:24 PM [facility] RDW 13.2 11.5 - 15.5 % 05/12/2024 1:24 PM [facility] PLATELET COUNT 184 140 - 440 thou/cu mm 05/12/2024 1:24 PM [facility] MPV 11.5(H) 6.5 - 11.0 fL 05/12/2024 1:24 PM [facility] % NEUT 58.2 % 05/12/2024 1:24 PM [facility] % LYMPH 30.5 % 05/12/2024 1:24 PM [facility] % MONO 7.9 % 05/12/2024 1:24 PM [facility] % EOS 3.1 % 05/12/2024 1:24 PM [facility] % BASO 0.3 % 05/12/2024 1:24 PM [facility] ABSOLUTE NEUTROPHILS 4.3 1.7 - 7.0 thou/cu mm 05/12/2024 1:24 PM [facility] ABSOLUTE LYMPHOCYTES 2.2 0.9 - 2.9 thou/cu mm 05/12/2024 1:24 PM [facility] ABSOLUTE MONOCYTES 0.6 <0.9 thou/cu mm 05/12/2024 1:24 PM [facility] ABSOLUTE EOSINOPHILS 0.2 <0.5 thou/cu mm 05/12/2024 1:24 PM [facility] ABSOLUTE BASOPHILS 0.0 <0.3 thou/cu mm 05/12/2024 1:24 PM [facility] Blood BLOOD SPECIMEN / Unknown Venipuncture / Unknown 05/12/2024 12:58 PM CDT 05/12/2024 12:58 PM CDT Shruti Sheikh DO HEMATOLOGY [facility] [address] [place], [place] [id number] * TSH WITH REFLEX (05/12/2024 12:58 PM CDT) TSH 3.25 0.27 - 4.20 uIU/mL 05/12/2024 1:29 PM CDT [facility] Blood BLOOD SPECIMEN / Unknown Venipuncture / Unknown 05/12/2024 12:58 PM CDT 05/12/2024 12:58 PM CDT [facility] - 05/12/2024 1:29 PM CDT In Adults, TSH values between 5.00 and 10.00 uIU/ml do not necessarily indicate the presence of Hypothyroidism. Correlation with clinical findings such as presence of goiter and/or Thyroperoxidase (TPO) Antibody may be helpful. For more information please refer to NADINE 2004; 291: 228-238. Shruti Sheikh DO CHEMISTRY [facility] [address] [place] [address] * (ABNORMAL) LIPID PANEL W REFLEX MEASURED LDL (05/12/2024 12:58 PM CDT) CHOLESTEROL,TOTAL 249(H) 100 - 199 mg/dL 05/12/2024 1:29 PM [facility] Comment: Cholesterol, Total Reference Ranges Desirable <200 mg/dL Borderline 200-239 mg/dL High >=240 mg/dL TRIGLYCERIDES 219(H) <150 mg/dL 05/12/2024 1:29 PM [facility] HDL CHOLESTEROL 52 >40 mg/dL 1:29 PM [facility] NON-HDL CHOLESTEROL 197(H) <145 mg/dl 05/12/2024 1:29 PM [facility] CHOL/HDL RATIO 4.79(H) <4.50 05/12/2024 1:29 PM [facility] LDL CHOLESTEROL 153(H) <=130 mg/dL 05/12/2024 1:29 PM [facility] VLDL CHOLESTEROL 44(H) <=30 mg/dL 05/12/2024 1:29 PM [facility] PROVIDER ORDERED STATUS RANDOM 05/12/2024 1:29 PM [facility] Blood BLOOD SPECIMEN / Unknown Venipuncture / Unknown 05/12/2024 12:58 PM CDT 05/12/2024 12:58 PM CDT Shruti Sheikh DO CHEMISTRY Performing Organization Address [facility] Co de Phone Number [facility] [address] [place] [address] * (ABNORMAL) PROTIME-INR (05/12/2024 12:58 PM CDT) INR 3.9(H) <1.3 05/12/2024 1:32 PM CDT [facility] PROTIME 41.5(H) 10.3 - 12.3 sec 05/12/2024 1:32 PM CDT [facility] Blood BLOOD SPECIMEN / Unknown Venipuncture / Unknown 05/12/2024 12:58 PM CDT 05/12/2024 12:58 PM CDT Narrative [facility] - 05/12/2024 1:32 PM CDT ?Therapeutic Range 2.0-3.0 for most anticoagulated patients 2.5-3.5 or 4.0 for high risk patients The INR is only used for patients on stable oral anticoagulant therapy. It makes no significant contribution to the diagnosis or treatment of patients whose Protime is prolonged for other reasons. INR results are increased when heparin levels exceed 1.0 U/mL, which corresponds to an aPTT >125 seconds if the patient is on UFH. Shruti Sheikh DO HEMATOLOGY Performing Organization Address [facility] Co de Phone Number [facility] [address] [place] [address] * (ABNORMAL) HEMOGLOBIN A1C MONITORING (POCT) (05/12/2024 12:58 PM CDT) HEMOGLOBIN A1C MONITORING (POCT) 6.6(H) <=6.4 % 05/12/2024 1:06 PM CDT [facility] Blood BLOOD SPECIMEN / Unknown Venipuncture / Unknown 05/12/2024 12:58 PM CDT 05/12/2024 12:58 PM CDT Narrative [facility] - 05/12/2024 1:06 PM CDT ? (<=6.9%) ? Indicates good control ? (7.0% to 7.9%) ? Indicates fair control ? (>=8.0%) ? Indicates poor control ?? NOTE: ??These thresholds are guidelines and ?individual targets may vary. Falsely low levels may be seen with: Recent Transfusion, Recent Significant Blood Loss, Hemolytic Diseases, or Falsely elevated levels may be seen with: Untreated Anemias, Splenectomy ? Shruti Sheikh DO CHEMISTRY [facility] [address] [place] [address] * (ABNORMAL) COMP METABOLIC PANEL (05/12/2024 12:58 PM CDT) SODIUM 136 136 - 145 mmol/L 05/12/2024 1:43 PM [facility] POTASSIUM 4.2 3.5 - 5.1 mmol/L 05/12/2024 1:43 PM [facility] CHLORIDE 100 98 - 107 mmol/L 05/12/2024 1:43 PM [facility] CO2,TOTAL 28 22 - 29 mmol/L 05/12/2024 1:43 PM [facility] ANION GAP 8 5 - 18 05/12/2024 1:43 PM [facility] GLUCOSE 162(H) 70 - 99 mg/dL 05/12/2024 1:43 PM [facility] CALCIUM 9.5 8.8 - 10.2 mg/dL 05/12/2024 1:43 PM [facility] BUN 13 8 - 23 mg/dL 05/12/2024 1:43 PM [facility] CREATININE 1.08(H) 0.50 - 0.90 mg/dL 05/12/2024 1:43 PM T [facility] BUN/CREAT RATIO 12 10 - 20 1:43 PM T [facility] eGFR 54(L) >90 mL/min/1.7 3m2 05/12/2024 1:43 PM T [facility] Comment:As of 2021, eG FR is calculated by the CKD-EPI creatinine equation without race adjustment. ??eGFR can be influenced by muscle mass, exercise, and diet. ??The reported eGFR is an estimation only and is only applicable if the renal function is stable. ALBUMIN 3.7(L) 4.0 - 4.9 g/dL 05/12/2024 1:43 PM T [facility] PROTEIN,TOTAL 7.4 6.0 - 8.0 g/dL 05/12/2024 1:43 PM T [facility] BILIRUBIN,TOTAL 0.4 0.0 - 1.2 mg/dL 05/12/2024 1:43 PM T [facility] ALK PHOSPHATASE 100 35 - 104 IU/L 05/12/2024 1:43 PM T [facility] ALT (SGPT) <5(L) 10 - 35 IU/L 05/12/2024 1:43 PM T [facility] AST (SGOT) 19 10 - 35 IU/L 05/12/2024 1:43 PM T [facility] Blood BLOOD SPECIMEN / Unknown Venipuncture / Unknown 05/12/2024 12:58 PM CDT 05/12/2024 12:58 PM CDT Shruti Sheikh DO CHEMISTRY [facility] [address] [place] [address] * ANTI HCV (03/12/2017 12:59 PM CDT) HEPATITIS C ANTIBODY Non-Reacti ve Non-Reacti ve 03/12/2017 8:44 PM CDT [facility] Blood BLOOD SPECIMEN / Unknown Butterfly / Unknown 03/12/2017 12:59 PM CDT 03/12/2017 12:59 PM CDT Narrative [facility] - 03/12/2017 8:44 PM CDT Antibodies to HCV not detected; does not exclude the possibility of exposure to HCV. Shruti Sheikh DO SEND OUTS [facility] [address] [place] [address], from Last 3 Months or Most Recently Relevant to Health Maintenance Advance Directives * Partial Code (Latest Code Status on File) Date Activated Date Inactivated Comments 09/25/2023 4:35 PM 09/26/2023 3:50 PM Question Answer Comments Cardio Resuscitation: No Chest Compressions Ventilation: No Restrictions Drug Protocol: No Restrictions * Full Code Date Activated Date Inactivated Comments 10/27/2008 10:16 AM 10/28/2008 4:21 PM * Full Code Date Activated Date Inactivated Comments 09/01/2007 9:50 AM 09/07/2007 4:09 PM Care Teams Licensed Embalmer Relationship Specialty Start Date End Date Shruti Sheikh DO [address] [place] [address] PCP - General Internal Medicine 10/20/13 Bob Harrison V [address] [place], [place] Sewer Line Photo Inspector 05/13/12
--- OUTSIDE RECORDS SUMMARY | 2024-08-05 11:54 | XMS_ITS | Continuity of Care Document ---
Author Name [facility] Organization [facility] Care Team Providers Care Automotive Engineer Name Role Phone [facility] Unavailable Unavailable Medications Combined list of outpatient medications from Department of Defense and Veterans Affairs facilities.Medications provided include 1) outpatient medications from the last 15 months, and 2) patient-reported medications. Medication Details Route Status Patient Instructions Prescription Expires Prescription Number Last Dispense Date Ordering Provider Order Date Order Qty Source ALBUTEROL SULFATE HFA (albuterol sulfate), 90 MCG, HFA AER AD, INHALATION, [facility], 18 g CANISTER Active [id number] 2023 54 Pharmac y Data Transac tion Service Facilit y ALBUTEROL SULFATE HFA (albuterol sulfate), 90 MCG, HFA AER AD, INHALATION, [facility], 6.7 g CANISTER Active [id number] 3 2022 6.7 Pharmac y Data Transac tion Service Facilit y FLUTICASONE PROPIONATE (FLUTICASON E PROPIONATE) , 50MCG, SPRAY SUSP, NASAL, [facility]OT[facility]ILSON, 16 g AER W/ADAP Active [id number] 2023 16 Pharmac y Data Transac tion Service Facilit y FLUTICASONE PROPIONATE (FLUTICASON E PROPIONATE) , 50MCG, SPRAY SUSP, NASAL, APOT[employer] ADILSON, 16 g AER W/ADAP Active [id number] 3 2022 16 Pharmac y Data Transac tion Service Facilit y FLUTICASONE PROPIONATE HFA (fluticason e propionate) , 44 MCG, AER W/ADAP, INHALATION, [facility], 10.6 g AER W/ADAP Active [id number] 2023 10.6 Pharmac y Data Transac tion Service Facilit y FLUTICASONE PROPIONATE HFA (fluticason e propionate) , 44 MCG, AER W/ADAP, INHALATION, [facility], 10.6 g AER W/ADAP Cancele d [id number] : 2023 0 Pharmac y Data Transac tion Service Facilit y FLUTICASONE PROPIONATE HFA (fluticason e propionate) , 44 MCG, AER W/ADAP, INHALATION, [facility], 10.6 g AER W/ADAP Active [id number] 4 2023 10.6 Pharmac y Data Transac tion Service Facilit y FLUTICASONE PROPIONATE HFA (fluticason e propionate) , 44 MCG, AER W/ADAP, INHALATION, [facility], 10.6 g AER W/ADAP Active [id number] 4 2023 10.6 Pharmac y Data Transac tion Service Facilit y FUROSEMIDE (furosemide ), 40 MG, TABLET, ORAL, [employer], 1000 ea. BOTTLE Active [id number] 3 2022 30 Pharmac y Data Transac tion Service Facilit y FUROSEMIDE (furosemide ), 40 MG, TABLET, ORAL, [facility] [facility], 1000 ea. BOTTLE Cancele d [id number] : 2023 0 Pharmac y Data Transac tion Service Facilit y FUROSEMIDE (furosemide ), 40 MG, TABLET, ORAL, [facility], 1000 ea. BOTTLE Active [id number] 2023 30 Pharmac y Data Transac tion Service Facilit y FUROSEMIDE (furosemide ), 40 MG, TABLET, ORAL, [facility], 1000 ea. BOTTLE Active [id number] 2023 30 Pharmac y Data Transac tion Service Facilit y LIDOCAINE (LIDOCAINE) , 5%(700MG), ADH. PATCH, TOPICAL, [facility]AL[facility], 30 ea. BOX Active [id number] 2023 10 Pharmac y Data Transac tion Service Facilit y LISINOPRIL (lisinopril ), 10 MG, TABLET, ORAL, [facility], 1000 ea. BOTTLE Active [id number] 3 2022 30 Pharmac y Data Transac tion Service Facilit y LISINOPRIL (lisinopril ), 10 MG, TABLET, ORAL, [facility], 1000 ea. BOTTLE Active [id number] 2023 30 Pharmac y Data Transac tion Service Facilit y METFORMIN HCL (metformin HCl), 500 MG, TABLET, ORAL, [employer], 1000 ea. BOTTLE Active [id number] 2022 30 Pharmac y Data Transac tion Service Facilit y METOPROLOL TARTRATE (metoprolol tartrate), 100 MG, TABLET, ORAL, [employer] 100 ea. BOTTLE Active [id number] 2023 30 Pharmac y Data Transac tion Service Facilit y METOPROLOL TARTRATE (metoprolol tartrate), 100 MG, TABLET, ORAL, [employer] 1000 ea. BOTTLE Cancele d [id number] : 2023 0 Pharmac y Data Transac tion Service Facilit y METOPROLOL TARTRATE (METOPROLOL TARTRATE), 50MG, TABLET, ORAL, [employer] [facility], 1000 ea. BOTTLE Active [id number] 2022 60 Pharmac y Data Transac tion Service Facilit y METOPROLOL TARTRATE (METOPROLOL TARTRATE), 50MG, TABLET, ORAL, [employer] PHAR, 1000 ea. BOTTLE Active [id number] 2023 60 Pharmac y Data Transac tion Service Facilit y OMEPRAZOLE (omeprazole ), 20 MG, CAPSULE DR, ORAL, [employer], 1000 ea. BOTTLE Active [id number] 2022 30 Pharmac y Data Transac tion Service Facilit y OMEPRAZOLE (omeprazole ), 20 MG, CAPSULE , ORAL, [employer], 1000 ea. BOTTLE Active [id number] 4 2023 30 Pharmac y Data Transac tion Service Facilit y PRAVASTATIN SODIUM (PRAVASTATI N SODIUM), 40MG, TABLET, ORAL, [employer], 1000 ea. BOTTLE Active [id number] 2023 90 Pharmac y Data Transac tion Service Facilit y PRAVASTATIN SODIUM (PRAVASTATI N SODIUM), 40MG, TABLET, ORAL, [employer], 1000 ea. BOTTLE Active [id number] 2023 90 Pharmac y Data Transac tion Service Facilit y ROSUVASTATI N CALCIUM (rosuvastat in calcium), 5 MG, TABLET, ORAL, [employer], 500 ea. BOTTLE Active [id number] 3 2022 30 Pharmac y Data Transac tion Service Facilit y WARFARIN SODIUM (WARFARIN SODIUM), 1 MG, TABLET, ORAL, [employer], 1000 ea. BOTTLE Active [id number] 4 2023 5 Pharmac y Data Transac tion Service Facilit y WARFARIN SODIUM (WARFARIN SODIUM), 2.5 MG, TABLET, ORAL, [employer], 1000 ea. BOTTLE Active [id number] 2023 8 Pharmac y Data Transac tion Service Facilit y WARFARIN SODIUM (WARFARIN SODIUM), 2.5 MG, TABLET, ORAL, [employer], 1000 ea. BOTTLE Active [id number] 2023 5 Pharmac y Data Transac tion Service Facilit y WARFARIN SODIUM (WARFARIN SODIUM), 2.5 MG, TABLET, ORAL, [employer], 1000 ea. BOTTLE Active [id number] 2023 5 Pharmac y Data Transac tion Service Facilit y WARFARIN SODIUM (WARFARIN SODIUM), 2.5 MG, TABLET, ORAL, [employer], 1000 ea. BOTTLE Active [id number] 2022 6 Pharmac y Data Transac tion Service Facilit y WARFARIN SODIUM (WARFARIN SODIUM), 2.5 MG, TABLET, ORAL, [employer], 1000 ea. BOTTLE Active [id number] 4 2023 97 Pharmac y Data Transac tion Service Facilit y WARFARIN SODIUM (WARFARIN SODIUM), 2.5 MG, TABLET, ORAL, [employer], 1000 ea. BOTTLE Active [id number] 2023 90 Pharmac y Data Transac tion Service Facilit y WARFARIN SODIUM (WARFARIN SODIUM), 3 MG, TABLET, ORAL, [employer], 1000 ea. BOTTLE Active [id number] 2023 6 Pharmac y Data Transac tion Service Facilit y WARFARIN SODIUM (WARFARIN SODIUM), 3 MG, TABLET, ORAL, [employer], 1000 ea. BOTTLE Active [id number] 4 2023 8 Pharmac y Data Transac tion Service Facilit y Immunizations Combined list of available immunizations from the Department of Defense and Veterans Affairs facilities. Immunization Series Date Given Administered By Site Reaction Lot Number CVX Code Drug Plastic Parts Fabricator Status Comments Source zoster live 2013 JEAN-CLAUDE JACOME () Not Given zoster live DoD Tdap 2013 JEAN-CLAUDE JACOME () Not Given Tdap DoD Social History Combined list of available smoking, tobacco, and other social history from Department of Defense and Veterans Affairs facilities. Social History Type Response Date Comment Sour e This section is an empty social history section. DoD
--- NOTE | 2024-08-05 12:14 | CRLHL7_ITS ---
For Patients: As a result of the Century Cures Act, medical imaging exams and procedure reports are released immediately into your electronic medical record. You may view this report before your referring provider. If you have questions, please contact your health care provider. INDICATION: Leg pain and swelling TECHNIQUE: Ultrasound venous duplex lower right extremity. Compression venous exam was performed using doll-scale, color Doppler, and spectral Doppler imaging. COMPARISON: None. FINDINGS: Right lower extremity: Common femoral vein: Patent and compressible. Greater saphenous vein: Patent. Deep femoral vein: Patent. Femoral vein: Patent and compressible. Popliteal vein: Patent and compressible. Posterior tibial vein: Compressible. Peroneal vein: Patent and compressible. Contralateral left common femoral vein: Patent and compressible. IMPRESSION: No evidence of acute deep venous thrombosis in the right lower extremity. Dictated by Andrea Matta MD @ 08/05/2024 1:00:36 PM (Electronically Signed)
--- NOTE | 2024-08-05 12:15 | CRLHL7_ITS ---
For Patients: As a result of the Century Cures Act, medical imaging exams and procedure reports are released immediately into your electronic medical record. You may view this report before your referring provider. If you have questions, please contact your health care provider. INDICATION: Possible fracture on radiograph TECHNIQUE: CT right hip without contrast. COMPARISON: Hip radiograph 08/09/2024 FINDINGS: Bones: Nondisplaced mildly comminuted fracture of the greater trochanter. Diffuse osseous demineralization. Joints: Mild right SI joint osteoarthritis.. Soft tissues: Diverticulosis of the visualized sigmoid colon without evidence of diverticulitis. No obstruction visualized bowel loops. Hysterectomy. Mild soft tissue swelling surrounding the greater trochanter. Moderate atrophy of gluteal musculature. Moderate aortoiliac atherosclerosis. IMPRESSION: Nondisplaced mildly comminuted fracture of the greater trochanter with surrounding soft tissue stranding. Please note that all CT scans at this facility use dose modulation, iterative reconstruction, and/or weight-based dosing when appropriate to reduce radiation dose to as low as reasonably achievable. Dictated by Chelsie Brewer MD @ 08/05/2024 1:23:03 PM (Electronically Signed)
[2024-08-05 12:36] LABS: Basophils Absolute Auto 0.04 K/uL (0.00-0.30); Basophils Percent Auto 0.4 % (0.0-3.0); Eosinophils Absolute Auto 0.06 K/uL (0.00-0.50); Eosinophils Percent Auto 0.7 % (0.0-7.0); Hematocrit 43.1 % (33.0-51.0); Hemoglobin* 13.9 gm/dL (12.0-16.0); Immature Granulocytes Abs Auto 0.02 K/uL (0.00-0.30); Immature Granulocytes Pct Auto 0.2 %; Lymphocytes Percent Auto 12.6 % (20-44); Mean Corpuscular HGB Conc 32 gm/dL (32-36); Mean Corpuscular Hemoglobin 31 pg (26-34); Mean Corpuscular Volume 95 fL (80-100); Monocytes Percent Auto 7.5 % (0.0-11.0); Neutrophils Percent Auto 78.6 % (42.0-72.0); Platelet Count* 169 K/uL (140-440); RDW Coefficient of Variation % 13.2 % (11.5-15.5); Red Blood Count 4.53 m/uL (4.00-5.20)
[2024-08-05 12:47] LABS: Slide Review Reflex No
[2024-08-05 12:56] LABS: Chloride* 100 mmol/L (96-114); Potassium* 3.6 mmol/L (3.6-5.1); Sodium* 136 mmol/L (135-149)
[2024-08-05 12:59] LABS: Anion Gap 10 mEq/L (7-15); Blood Urea Nitrogen* 20 mg/dL (7-30); Carbon Dioxide* 26 mmol/L (20-32); Est. Creatinine Clearance* 41.97; Estimated Glomerular Filt Rate 59 ml/min
[2024-08-05 13:00] LABS: Glucose* 150 mg/dL (60-115)
[2024-08-05 13:01] LABS: D Dimer Quantitative* 1.66 ug/ml (0.00-0.50)
--- NOTE | 2024-08-05 13:03 | CRLHL7_ITS ---
For Patients: As a result of the Century Cures Act, medical imaging exams and procedure reports are released immediately into your electronic medical record. You may view this report before your referring provider. If you have questions, please contact your health care provider. INDICATION: Shortness of breath. Elevated D-dimer. TECHNIQUE: CT chest pulmonary angiogram acquired with 95 cc of Isovue 370 IV contrast. COMPARISON: None. FINDINGS: Cardiovascular structures: CT pulmonary angiogram demonstrates adequate opacification of the pulmonary arteries. No evidence of pulmonary embolus. Main pulmonary artery is dilated to 3.3 cm. Aortic atherosclerosis and prior aortic valve replacement. Thoracic aorta is normal in caliber. Borderline/mild cardiomegaly and coronary artery calcifications. Mediastinum and shonna: No pathologic lymphadenopathy. Lungs: No pneumothorax. Central airways are patent. Subtle prominence of the bilateral pulmonary interstitium and mild ground-glass opacities. No focal airspace consolidation. Pleura and pericardium: Trace bilateral pleural effusions. No pericardial effusion. Chest wall and axilla: Bilateral calcified breast implants suspected, with complete collapse on the left. Bones: Degenerative changes and chronic appearing compression deformities of the thoracic spine. No acute or suspicious osseous abnormality. Upper abdomen: Cholecystectomy. IMPRESSION: 1. Trace pulmonary edema and bilateral pleural effusions. 2. No evidence of pulmonary embolus. Dictated by Chirag Honeycutt MD @ 08/05/2024 3:04:37 PM Please note that all CT scans at this facility use dose modulation, iterative reconstruction, and/or weight-based dosing when appropriate to reduce radiation dose to as low as reasonably achievable. Dictated by: Chirag Honeycutt MD @ 08/05/2024 15:05:23 (Electronically Signed)
[2024-08-05 13:14] LABS: PCR FLU A Negative PCR FLU A (Negative); PCR FLU B Negative PCR FLU B (Negative); PCR RSV Negative PCR RSV (Negative); SARS PCR* Negative SARS-CoV-2 (Negative)
[2024-08-05 13:21] LABS: Troponin, Point-of-Care* 1.32 ng/ml (0.01-0.04)
[2024-08-05 13:27] LABS: NT Pro B Type NatriureticPept* 41400 pg/mL
== END 2024-08-05 16:38 | disposition home or self-care (01) ==
PROVIDERS: Emergency Provider Student in an Organized Health Care Education/Training Program
DX: S72.114A Nondisplaced fracture of greater trochanter of right femur, initial encounter for closed fracture (principal); W18.30XA Fall on same level, unspecified, initial encounter; I50.9 Heart failure, unspecified
CPT/HCPCS: 36415; 71275; 72170; 73552; 73700; 80048; 83880; 84484; 85025; 85379; 87631; 93005; 93971; 94761; 99284; 99285; Q9967

== ENCOUNTER 2024-08-09 07:28 | Emergency (ER) | payer MEDICARE, OTHER, SELFPAY ==
[2024-08-09] VITALS (12 sets, daily range): BP systolic 68–110; BP diastolic 29–63; PULSE 54–60; RESP 28–36; TEMP 35.1; O2SAT 87–99; BMI 45.7
--- NOTE | 2024-08-09 07:29 | CRLHL7_ITS ---
For Patients: As a result of the Century Cures Act, medical imaging exams and procedure reports are released immediately into your electronic medical record. You may view this report before your referring provider. If you have questions, please contact your health care provider. INDICATION: Altered mental status TECHNIQUE: CT head without contrast. COMPARISON: None. FINDINGS: Examination is mildly degraded by patient motion. CSF spaces: Within normal limits for age. Brain parenchyma: Cerebral atrophy with moderate low density within the deep white matter. No mass effect or intracranial bleed. Hoskins-white differentiation appears preserved. 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 Skull base and calvarium: The visualized paranasal sinuses and mastoid air cells demonstrate no acute or significant findings. The visualized orbits are grossly unremarkable. No skull fractures. Atherosclerosis. 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 IMPRESSION: 1. No intracranial bleed or mass effect. 2. Cerebral atrophy with nonspecific white matter disease, likely microangiopathy. 3. 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 Please note that all CT scans at this facility use dose modulation, iterative reconstruction, and/or weight-based dosing when appropriate to reduce radiation dose to as low as reasonably achievable. Dictated by Yayo Kelley MD @ 08/09/2024 7:43:02 AM (Electronically Signed)
--- NOTE | 2024-08-09 07:36 | CRLHL7_ITS ---
For Patients: As a result of the Century Cures Act, medical imaging exams and procedure reports are released immediately into your electronic medical record. You may view this report before your referring provider. If you have questions, please contact your health care provider. INDICATION: Altered mental status. Hypotension COMPARISON: None TECHNIQUE: A single view study was obtained as a portable CXR, 09 August 2024 FINDINGS: As discussed below IMPRESSION: 1. Heart size top-normal. Sternotomy. 2. Limited due to rotation. No definite acute focal finding involving the lungs and pleural spaces. Dictated by Cameron Agrawal MD @ 08/09/2024 7:49:06 AM (Electronically Signed)
--- NOTE | 2024-08-09 07:39 | ED_ITS ---
HPI - General Adult General Chief complaint: Weakness Stated complaint: weakness, possible stroke Time Seen by Provider: 08/09/24 07:31 Source: patient and EMS Mode of arrival: EMS Limitations: altered mental status History of Present Illness HPI narrative: 73-year-old female presents the emergency department with altered mental status and slurring of speech. Slurring of speech was noted approximately a half prior to EMS arrival, very vague and nondescript. No focal motor signs otherwise. Last known well was about 1 hour prior to that. EMS reports that family gave her an oxycodone tablet for the 1st time this morning. Patient has a hip fracture diagnosed on the . Those ED notes are reviewed. She had had a fall 1 week prior and came into the ED with persistent right hip pain. Extensive workup that also included a CT angio of the chest to investigate shortness of breath was performed. CT of the hip did confirm a very small nondisplaced fracture at the greater trochanter. CT of the chest did not show any pulmonary embolism but it did show some pulmonary edema and small pleural effusions. She does have a reported history of CHF. She denies any long-term medical problems or any medications to me. Family is managing her medications she reports. She reports that she recalls the slurred speech but is feeling back to normal now. It is clear that she is not mentating normally. EMS noted hypotension around 80 systolic upon their arrival. They attempted but were not able to secure an IV line. She denies a prior history of stroke. She is anticoagulated on Coumadin. Does not remember her last INR. Does not suspected has been checked since she was last in the ED 4 days ago. She denies any focal symptoms to me like shortness of breath, chest pain, dysuria or skin infection. I would not consider her an adequate historian. Per EMS, lives with family in [place]. ED course and note reviewed from the . It looks like she had an elevated troponin at that visit but Cardiology was comfortable discharging her. I am still trying to obtain her cardiology records at the time of this note. Past medical history obtained from records is diabetes, congestive heart failure, coronary artery disease, obesity, chronic venous stasis. Meds are lisinopril, metoprolol, Coumadin. Recent prescription for oxycodone for the hip pain. ROS from the patient is unreliable but she reported only the slurred speech. I did attempt to review of systems times 12 systems and would not consider this a trustworthy. Related Data Allergies Allergy/AdvReac Type Severity Reaction Status Date / Time No Known Drug Allergies Allergy Verified 08/05/24 14:51 [facility] Social History Smoking Status: Unknown if ever smoked Exam Const: Vital Signs, click to edit/add: Vital Signs - 24 hr 08/09/24 07:28 08/09/24 08:02 08/09/24 08:03 Temperature 95.2 F L Pulse Rate 56 L Pulse Rate [Pulse Oximeter] 60 Respiratory Rate 28 H Blood Pressure 73/39 L Blood Pressure [Le ft Upper Arm] 89/44 L Pulse Oximetry 99 98 91 Oxygen Delivery Me thod Nasal Cannula 08/09/24 08:07 08/09/24 08:16 08/09/24 08:23 Temperature Pulse Rate 54 L 54 L 54 L Pulse Rate [Pulse Oximeter] Respiratory Rate Blood Pressure 74/63 L Blood Pressure [Le ft Upper Arm] Pulse Oximetry 97 93 Oxygen Delivery Me thod 08/09/24 08:28 08/09/24 08:37 08/09/24 08:45 Temperature Pulse Rate 57 L 57 L Pulse Rate [Pulse Oximeter] Respiratory Rate Blood Pressure 110/60 83/29 L Blood Pressure [Le ft Upper Arm] Pulse Oximetry 87 L 91 Oxygen Delivery Me thod 08/09/24 09:01 08/09/24 09:15 Temperature Pulse Rate Pulse Rate [Pulse Oximeter] Respiratory Rate 36 H Blood Pressure 68/41 L Blood Pressure [Le ft Upper Arm] Pulse Oximetry 98 93 Oxygen Delivery Me thod Documenting provider has reviewed patient's vital signs: yes Nutritional appearance: obese Other: Very dry mucous membranes, makes good eye contact follows commands without difficulty. GCS 15. Globally weak and fatigued. HENMT: Common normals: normocephalic and hearing grossly normal bilaterally Head and scalp: normocephalic Face and sinus: normal facial exam Other: No facial asymmetry. Other than dryness, normal oropharynx. Eye: Common normals: PERRL and conjunctivae normal General eye: normal appearance of both eyes Conjunctiva: conjunctiva(e) normal Pupil: PERRL Neck & C-Spine: Common normals: full ROM, no lymphadenopathy and no meningeal signs General: normal visual inspection Resp: Common normals: normal respiratory effort and no use of accessory muscles Other: Very distant breath sounds, more decreased at the bases. No obvious extra Glo wheeze. Cardio: Common normals: regular rate and regular rhythm Rate: regular rate Rhythm: regular rhythm Other: Rhythm seems regular but heart sounds are quite distant. No obvious murmur but very soft sounds. Midline sternotomy scar well healed. GI: Common normals: Normal to inspection, nondistended, normoactive bowel sounds present, soft to palpation, non-tender, no hepatosplenomegaly and no masses Palpation: soft and no hepatosplenomegaly Extremity: Other: 2+ edema to the upper thigh on the left, 3+ on the right with appearance of chronic venous stasis skin staining. Venous stasis to the abdominal pannus, yeast without open wounds. Bruising on the right hip consistent with known fracture and prior exam. Toes have capillary refill of just at 2 seconds and are room temperature, not warm. Neuro: Meningeal signs: no meningeal signs Speech: speech normal Other: Equal pupils, symmetric facial movements. Will move arms and legs on command but with global weakness, symmetric. Speech is normal in production but impoverished in content. Psych: Other: Memory impaired with acute delirium. Appears clean and relatively well cared for. Skin: Narrative: Venous stasis rashes, have not yet examined back. Course Course ED Course: Altered mental status and hypotension. Heart rate cannot be trusted to determine sepsis due to beta-ian use. Blood sugar normal at the scene. Di fferential diagnosis high for sepsis, cardiac complication, pulmonary edema lower risk for pulmonary embolism. Cannot exclude stroke, brain hemorrhage, other infection. Will start with head CT, chest x-ray, typical blood work. Bolus 500 mL of normal saline. We will have to go slow with her fluids due to her CHF history. Lactate with planned reflex. I suspect that she is dry and exhibiting signs of acute illness. The oxycodone likely exacerbated her delirium. Will start these measures anticipate handing over care to incoming day shift partner. Reevaluation(s) Reevaluation #1: Notified of markedly high lactate. This with hypotension is suspicious for shock. Whether this is septic shock versus cardiogenic shock is a bit unclear at this time as we do seem to have 2 different pathologies. We do not have a localizing source of infection just yet and we certainly do have markedly elevated troponin. Will bolus another L. Re-evaluate after 1.5 L has been administered with her CHF. I have asked the nurses to open the fluids wide rather than over an hour. I have obtained her last echo but it is 5 years old. At that time her ejection fraction was 60-65% and she had a mechanical aortic valve. It seems from the previous ED note that she may not have been compliant with her Coumadin. EKG was quite poor quality but does not have an obvious ST elevation or depression. I have initiated transfer to ICU. [place] calling back. Time of Reevaluation #2: 08:50 Reevaluation #2: Patient has been accepted by [facility]. Pressors starting, second-line is still attempting to be obtained. Marked lab abnormalities are coming back. Acidosis. Bicarb, glucose. 12 update to family that she is critically ill and I will come back to update them on progress. Time of Reevaluation #3: 09:05 Reevaluation #3: Patient starting to have bradycardia. Was able to have a more extensive conversation with Claudia, patient's niece. She informs me that the really is no on else that can care for patient or should be contacted. Patient is a a 5 years, she has no children, she has no other close family in the area. And has come over from [place] to help care for her since this fracture. She has been with her the last 2 days and has noted a marked decline. She was the person that had called 911. She tells me that the patient would absolutely not have want to be confined to a usp. She did this for short-term rehab in was miserable. She has been depressed and waiting to for the last 5 years since her passed. I counseled family that with her critical condition and the fact that she has been failing at home for the last several weeks the potential for discharge to anywhere been usp really is not feasible. She is so critically ill that even survival is less than 1%. With this information and with multiple redirects confirming the same answer, and has elected to make patient DNR DNI and placed on comfort cares. I do feel as though this is the only appropriate solution and have updated [facility]. Additional Reevaluation(s): 919- I was called into the room as it appeared that patient had passed. She is not breathing and has no pulse. I did confirmed by bedside ultrasound she has no cardiac motion in substernal and parasternal views. Family has requested a unit controller, we will do this. Family is going to look and see where the patient is had their arrangements and we will contact them to see if the patient had any additional arrangements made. Family is comfortable with this and I do agree that this was the only potential care for her. Vital Signs Vital signs: Initial Vital Signs Temperature 95.2 F L 08/09/24 07:28 Temperature Source Temporal Artery Scan 08/09/24 07:28 Pulse Rate 60 08/09/24 07:28 Respiratory Rate 28 H 08/09/24 07:28 Blood Pressure 89/44 L 08/09/24 07:28 Blood Pressure Mean 59 L 08/09/24 07:28 Blood Pressure Position Supine 08/09/24 07:28 Pulse Oximetry 99 08/09/24 07:28 Oxygen Delivery Method Nasal Cannula 08/09/24 07:28 Vital Signs Temperature 95.2 F L 08/09/24 07:28 Pulse Rate 60 08/09/24 07:28 Respiratory Rate 28 H 08/09/24 07:28 Blood Pressure 89/44 L 08/09/24 07:28 Pulse Oximetry 99 08/09/24 07:28 Oxygen Delivery Method Nasal Cannula 08/09/24 07:28 Temperature 95.2 F L 08/09/24 07:28 Pulse Rate 57 L 08/09/24 08:37 Respiratory Rate 36 H 08/09/24 09:01 Blood Pressure 68/41 L 08/09/24 09:01 Pulse Oximetry 93 08/09/24 09:15 Oxygen Delivery Method Nasal Cannula 08/09/24 07:28 Medications Administered Medications: Discontinued Medications Generic Name Dose Route Start Last Admin Trade Name Freq PRN Reason Stop Dose Admin Sodium Chloride 500 mls @ 500 mls/hr 08/09/24 07:29 08/09/24 07:46 0.9 % Sodium Chloride 500 Ml IV 08/09/24 08:28 500 mls/hr .Q1H ONE Administration Sodium Chloride 1,000 mls @ 1,000 mls/hr 08/09/24 08:01 08/09/24 08:00 0.9 % Sodium Chloride 1000 Ml IV 08/09/24 09:00 1,000 mls/hr .Q1H CONSTANTINO Administration Medical Decision Making Lab Data Lab results reviewed: Yes I reviewed the patient's lab results Lab results narrative: So many marked derangements. Labs: Lab Results 08/09/24 08/09/24 08/09/24 Range/Units 07:40 07:45 08:24 WBC 12.69 H (4.50-11.00) K/uL RBC 5.12 (4.00-5.20) m/uL Hgb 15.5 (12.0-16.0) gm/dL Hct 49.7 (33.0-51.0) % MCV 97 (80-100) fL MCH 30 (26-34) pg MCHC 31 L (32-36) gm/dL RDW Coeff of Gilbert 13.3 (11.5-15.5) % Plt Count 147 (140-440) K/uL Neut % (Auto) 83.2 H (42.0-72.0) % Lymph % (Auto) 7.2 L (20-44) % Andrew % (Auto) 8.5 (0.0-11.0) % Eos % (Auto) 0.0 (0.0-7.0) % Baso % (Auto) 0.2 (0.0-3.0) % Neut # (Auto) 10.60 H (1.7-7.0) K/uL Lymph # (Auto) 0.90 (0.90-2.90) K/uL Andrew # (Auto) 1.10 H (0.00-0.90) K/UL Eos # (Auto) 0.00 (0.00-0.50) K/uL Baso # (Auto) 0.00 (0.00-0.30) K/uL Abs Immat Gran (auto) 0.10 (0.00-0.30) K/uL Imm/Tot Granulo (auto) 0.9 % INR 1.98 H (0.91-1.10) VBG pH (7.32-7.43) VBG pCO2 (40-50) mmHG VBG pO2 (25-47) mmHG VBG HCO3 (21-28) mmol/L Sodium 130 L (135-149) mmol/L Potassium 7.4 H* (3.6-5.1) mmol/L Chloride 94 L (96-114) mmol/L Carbon Dioxide 10 L (20-32) mmol/L Anion Gap 26 H (7-15) mEq/L BUN 69 H (7-30) mg/dL Creatinine 3.2 H (0.5-1.5) mg/dL Estimated Creat Clear 12.01 Estimated GFR 15 ml/min Glucose 38 L* (60-115) mg/dL Lactate 13.8 H* (0.5-1.9) mmol/L Calcium 9.5 (8.4-10.6) mg/dL Total Bilirubin 2.0 H (0.1-1.5) mg/dL AST 1710 H (12-35) U/L ALT 623 H (4-35) U/L Alkaline Phosphatase 205 H (40-150) U/L C-Reactive Protein 4.9 H (0.5-1.0) mg/dL NT-Pro-B Natriuret Pep [id number] pg/mL Total Protein 7.1 (6.0-8.3) g/dL Albumin 4.0 (3.3-5.0) g/dL Procalcitonin 0.78 H (<0.50) ng/mL SARS-CoV-2 (PCR) Negative SARS-CoV-2 (Negative) Influenza Type A (PCR) Negative PCR FLU A (Negative) Influenza Type B (PCR) Negative PCR FLU B (Negative) RSV (PCR) Negative PCR RSV (Negative) Lab Acknowledgement Test Added 08/09/24 Range/Units Unknown WBC (4.50-11.00) K/uL RBC (4.00-5.20) m/uL Hgb (12.0-16.0) gm/dL Hct (33.0-51.0) % MCV (80-100) fL MCH (26-34) pg MCHC (32-36) gm/dL RDW Coeff of Gilbert (11.5-15.5) % Plt Count (140-440) K/uL Neut % (Auto) (42.0-72.0) % Lymph % (Auto) (20-44) % Andrew % (Auto) (0.0-11.0) % Eos % (Auto) (0.0-7.0) % Baso % (Auto) (0.0-3.0) % Neut # (Auto) (1.7-7.0) K/uL Lymph # (Auto) (0.90-2.90) K/uL Andrew # (Auto) (0.00-0.90) K/UL Eos # (Auto) (0.00-0.50) K/uL Baso # (Auto) (0.00-0.30) K/uL Abs Immat Gran (auto) (0.00-0.30) K/uL Imm/Tot Granulo (auto) % INR (0.91-1.10) VBG pH 7.088 L* (7.32-7.43) VBG pCO2 38 L (40-50) mmHG VBG pO2 39.0 (25-47) mmHG VBG HCO3 12 L (21-28) mmol/L Sodium (135-149) mmol/L Potassium (3.6-5.1) mmol/L Chloride (96-114) mmol/L Carbon Dioxide (20-32) mmol/L Anion Gap (7-15) mEq/L BUN (7-30) mg/dL Creatinine (0.5-1.5) mg/dL Estimated Creat Clear Estimated GFR ml/min Glucose (60-115) mg/dL Lactate (0.5-1.9) mmol/L Calcium (8.4-10.6) mg/dL Total Bilirubin (0.1-1.5) mg/dL AST (12-35) U/L ALT (4-35) U/L Alkaline Phosphatase (40-150) U/L C-Reactive Protein (0.5-1.0) mg/dL NT-Pro-B Natriuret Pep pg/mL Total Protein (6.0-8.3) g/dL Albumin (3.3-5.0) g/dL Procalcitonin (<0.50) ng/mL SARS-CoV-2 (PCR) (Negative) Influenza Type A (PCR) (Negative) Influenza Type B (PCR) (Negative) RSV (PCR) (Negative) Lab Acknowledgement Imaging Data CT scan - head: Attestation: I have reviewed the pertinent imaging results. My impression: Degenerative changes but no obvious bleed. Radiologist's impression: IMPRESSION: 1. No intracranial bleed or mass effect. 2. Cerebral atrophy with nonspecific white matter disease, likely microangiopathy. 3. 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 Please note that all CT scans at this facility use dose modulation, iterative reconstruction, and/or weight-based dosing when appropriate to reduce radiation dose to as low as reasonably achievable. Dictated by Yayo Kelley MD @ 08/09/2024 7:43:02 AM ECG Data Attestation: I personally reviewed and interpreted this ECG as follows: Prior ECG tracings: available for review (Comparison 08/05/2024) Interpretation: Sinus rhythm rate 61. Chronic septal changes appear unchanged from 08/05. Since 08/05 T-waves have become flattened in the lateral leads and her slightly inverted in the far lateral leads. No obvious ST segment changes that were not present on the . [place] is leftward deviated. Critical Care Time Critical Care Time Critical Care Time: Yes Attestation: The patient required my highest level preparedness to intervene emergently and I personally spent this critical care time directly and personally managing the patient. This critical care time included: Obtaining a history; Examining the patient; Pulse oximetry; Ordering and reviewing of studies; Arranging urgent treatment with development of a management plan; Evaluation of patients response to treatment; Frequent reassessment discussions with other providers. This critical care time was performed to assess and manage the high probability of imminent life-threatening deterioration that could result in multiorgan failure. It was exclusive of separate billable procedures and treating other patients and teaching time. Total Critical Care Time in Minutes: 110 (Uninterrupted critical care time attempting to arrange transfer, managing acute critical care state, in-person discussions with family regarding comfort cares and brief end of life management.) Discharge Plan Discharge Clinical Impression: MOF (multiple organ failure) Date/Time: 08/09/24 09:20 Probable Cause of Probable Cause of : Congestive heart failure
[2024-08-09] MEDS: 0.9 % SODIUM CHLORIDE 500 ML 500 ML IV (07:46)
[2024-08-09 07:54] LABS: Basophils Percent Auto 0.2 % (0.0-3.0); Hematocrit 49.7 % (33.0-51.0); Hemoglobin* 15.5 gm/dL (12.0-16.0); Immature Granulocytes Pct Auto 0.9 %; Lymphocytes Percent Auto 7.2 % (20-44); Mean Corpuscular HGB Conc 31 gm/dL (32-36); Mean Corpuscular Hemoglobin 30 pg (26-34); Mean Corpuscular Volume 97 fL (80-100); Monocytes Percent Auto 8.5 % (0.0-11.0); Neutrophils Percent Auto 83.2 % (42.0-72.0); Platelet Count* 147 K/uL (140-440); RDW Coefficient of Variation % 13.3 % (11.5-15.5); Red Blood Count 5.12 m/uL (4.00-5.20); White Blood Count* 12.69 K/uL (4.50-11.00)
[2024-08-09 07:57] LABS: Slide Review Reflex No
[2024-08-09 07:59] LABS: Lactate Sepsis w/Reflex* 13.8 mmol/L (0.5-1.9)
[2024-08-09] MEDS: 0.9 % SODIUM CHLORIDE 1000 ml 1,000 ML IV (08:00)
[2024-08-09 08:11] LABS: INR 1.98 (0.91-1.10); Prothrombin Time 23.9 Seconds
[2024-08-09 08:31] LABS: PCR FLU A Negative PCR FLU A (Negative); PCR FLU B Negative PCR FLU B (Negative); PCR RSV Negative PCR RSV (Negative); SARS PCR* Negative SARS-CoV-2 (Negative)
[2024-08-09 08:35] LABS: PCO2 VBG 38 mmHG (40-50); pH VBG 7.088 (7.32-7.43)
[2024-08-09 08:36] LABS: HCO3 VBG 12 mmol/L (21-28)
[2024-08-09 08:41] LABS: C Reactive Protein* 4.9 mg/dL (0.5-1.0); Procalcitonin* 0.78 ng/mL (<0.50)
[2024-08-09 08:42] LABS: NT Pro B Type NatriureticPept* 120000 pg/mL
[2024-08-09 08:48] LABS: Anion Gap 26 mEq/L (7-15); Blood Urea Nitrogen* 69 mg/dL (7-30); Carbon Dioxide* 10 mmol/L (20-32); Chloride* 94 mmol/L (96-114); Sodium* 130 mmol/L (135-149)
[2024-08-09 08:49] LABS: Alkaline Phosphatase* 205 U/L (40-150); Calcium* 9.5 mg/dL (8.4-10.6); Creatinine* 3.2 mg/dL (0.5-1.5); Est. Creatinine Clearance* 12.01; Estimated Glomerular Filt Rate 15 ml/min; Total Protein* 7.1 g/dL (6.0-8.3)
[2024-08-09 08:53] LABS: Potassium* 7.4 mmol/L (3.6-5.1)
[2024-08-09 08:54] LABS: Glucose* 38 mg/dL (60-115)
--- OUTSIDE RECORDS SUMMARY | 2024-08-09 09:06 | XMS_ITS | Continuity of Care Document ---
Author Name [facility] Organization [facility] Care Team Providers Care Construction Project Coordinator Name Role Phone [facility] Unavailable Unavailable Medications Combined list of outpatient [...] INHALATION, [facility], 18 g CANISTER Active [id number] 2023 54 Pharmac y Data Transac tion Service Facilit y ALBUTEROL SULFATE HFA (albuterol sulfate), 90 MCG, HFA AER AD, INHALATION, GREATER [facility]/ [facility], 6.7 g CANISTER Active [id number] 2022 6.7 Pharmac y Data Transac tion Service Facilit y FLUTICASONE PROPIONATE (FLUTICASON E PROPIONATE) , 50MCG, SPRAY SUSP, NASAL, APOTEX ADILSON, 16 g AER W/ADAP Active [id number] 2023 16 Pharmac y Data Transac tion Service Facilit y FLUTICASONE PROPIONATE (FLUTICASON E PROPIONATE) , 50MCG, SPRAY SUSP, NASAL, APOTEX ADILSON, 16 g AER W/ADAP Active [id number] 2022 16 Pharmac y Data Transac tion Service Facilit y FLUTICASONE PROPIONATE HFA (fluticason e propionate) , 44 MCG, AER W/ADAP, INHALATION, [facility], 10.6 g AER W/ADAP Active [id number] 2023 10.6 Pharmac y Data Transac tion Service Facilit y FLUTICASONE PROPIONATE HFA (fluticason e propionate) , 44 MCG, AER W/ADAP, INHALATION, [facility], 10.6 g AER W/ADAP Cancele d [id number] : 2023 0 Pharmac y Data Transac tion Service Facilit y FLUTICASONE PROPIONATE HFA (fluticason e propionate) , 44 MCG, AER W/ADAP, INHALATION, [facility], 10.6 g AER W/ADAP Active [id number] 2023 10.6 Pharmac y Data Transac tion Service Facilit y FLUTICASONE PROPIONATE HFA (fluticason e propionate) , 44 MCG, AER W/ADAP, INHALATION, [facility], 10.6 g AER W/ADAP Active [id number] 2023 10.6 Pharmac y Data Transac tion Service Facilit y FUROSEMIDE (furosemide ), 40 MG, TABLET, ORAL, [employer], 1000 ea. BOTTLE Active [id number] 2022 30 Pharmac y Data Transac tion Service Facilit y FUROSEMIDE (furosemide ), 40 MG, TABLET, ORAL, [employer], 1000 ea. BOTTLE Cancele d [id number] : 2023 0 Pharmac y Data Transac tion Service Facilit y FUROSEMIDE (furosemide ), 40 MG, TABLET, ORAL, [employer] [facility], 1000 ea. BOTTLE Active [id number] 2023 30 Pharmac y Data Transac tion Service Facilit y FUROSEMIDE (furosemide ), 40 MG, TABLET, ORAL, [employer] [facility], 1000 ea. BOTTLE Active [id number] 2023 30 Pharmac y Data Transac tion Service Facilit y LIDOCAINE (LIDOCAINE) , 5%(700MG), ADH. PATCH, TOPICAL, QUALITEST, 30 ea. BOX Active [id number] 2023 10 Pharmac y Data Transac tion Service Facilit y LISINOPRIL (lisinopril ), 10 MG, TABLET, ORAL, [employer], 1000 ea. BOTTLE Active [id number] 2022 30 Pharmac y Data Transac tion Service Facilit y LISINOPRIL (lisinopril ), 10 MG, TABLET, ORAL, [employer], 1000 ea. BOTTLE Active [id number] 2023 30 Pharmac y Data Transac tion Service Facilit y METFORMIN HCL (metformin HCl), 500 MG, TABLET, ORAL, [employer]MA, 1000 ea. BOTTLE Active [id number] 2022 30 Pharmac y Data Transac tion Service Facilit y METOPROLOL TARTRATE (metoprolol tartrate), 100 MG, TABLET, ORAL, [employer] 100 ea. BOTTLE Active [id number] 2023 30 Pharmac y Data Transac tion Service Facilit y METOPROLOL TARTRATE (metoprolol tartrate), 100 MG, TABLET, ORAL, [employer] 1000 ea. BOTTLE Cancele d [id number] : 2023 0 Pharmac y Data Transac tion Service Facilit y METOPROLOL TARTRATE (METOPROLOL TARTRATE), 50MG, TABLET, ORAL, SUN[employer]CARACO PHAR, 1000 ea. BOTTLE Active [id number] 2022 60 Pharmac y Data Transac tion Service Facilit y METOPROLOL TARTRATE (METOPROLOL TARTRATE), 50MG, TABLET, ORAL, SUN/CARACO PHAR, 1000 ea. BOTTLE Active [id number] 2023 60 Pharmac y Data Transac tion Service Facilit y OMEPRAZOLE (omeprazole ), 20 MG, CAPSULE DR, ORAL, [employer]MA, 1000 ea. BOTTLE Active [id number] 2022 30 Pharmac y Data Transac tion Service Facilit y OMEPRAZOLE (omeprazole ), 20 MG, CAPSULE , ORAL, [employer]MA, 1000 ea. BOTTLE Active [id number] 2023 30 Pharmac y Data Transac tion Service Facilit y PRAVASTATIN SODIUM (PRAVASTATI N SODIUM), 40MG, TABLET, ORAL, [employer], 1000 ea. BOTTLE Active [id number] 4 2023 90 Pharmac y Data Transac tion Service Facilit y PRAVASTATIN SODIUM (PRAVASTATI N SODIUM), 40MG, TABLET, ORAL, [employer] [place], 1000 ea. BOTTLE Active [id number] 2023 90 Pharmac y Data Transac tion Service Facilit y ROSUVASTATI N CALCIUM (rosuvastat in calcium), 5 MG, TABLET, ORAL, [employer], 500 ea. BOTTLE Active [id number] 2022 30 Pharmac y Data Transac tion Service Facilit y WARFARIN SODIUM (WARFARIN SODIUM), 1 MG, TABLET, ORAL, AMNEAL PHARMACE, 1000 ea. BOTTLE Active [id number] 2023 5 Pharmac y Data Transac tion Service Facilit y WARFARIN SODIUM (WARFARIN SODIUM), 2.5 MG, TABLET, ORAL, [employer]ARMACE, 1000 ea. BOTTLE Active [id number] 2023 8 Pharmac y Data Transac tion Service Facilit y WARFARIN SODIUM (WARFARIN SODIUM), 2.5 MG, TABLET, ORAL, [employer]AL PHARMACE, 1000 ea. BOTTLE Active [id number] 2023 5 Pharmac y Data Transac tion Service Facilit y WARFARIN SODIUM (WARFARIN SODIUM), 2.5 MG, TABLET, ORAL, [employer]AL PHARMACE, 1000 ea. BOTTLE Active [id number] 2023 5 Pharmac y Data Transac tion Service Facilit y WARFARIN SODIUM (WARFARIN SODIUM), 2.5 MG, TABLET, ORAL, AMNEAL PHARMACE, 1000 ea. BOTTLE Active [id number] 2022 6 Pharmac y Data Transac tion Service Facilit y WARFARIN SODIUM (WARFARIN SODIUM), 2.5 MG, TABLET, ORAL, [employer] [place], 1000 ea. BOTTLE Active [id number] 2023 97 Pharmac y Data Transac tion Service Facilit y WARFARIN SODIUM (WARFARIN SODIUM), 2.5 MG, TABLET, ORAL, [employer] [place], 1000 ea. BOTTLE Active [id number] 2023 90 Pharmac y Data Transac tion Service Facilit y WARFARIN SODIUM (WARFARIN SODIUM), 3 MG, TABLET, ORAL, [employer]ARMA L, 1000 ea. BOTTLE Active [id number] 2023 6 Pharmac y Data Transac tion Service Facilit y WARFARIN SODIUM (WARFARIN SODIUM), 3 MG, TABLET, ORAL, [employer] PHARMA L, 1000 ea. BOTTLE Active [id number] 2023 8 Pharmac y Data Transac tion Service Facilit y Immunizations Combined list of available immunizations from the Department of Defense and Veterans Affairs facilities. Immunization Series Date Given Administered By Site Reaction Lot Number CVX Code Drug Insurance Defense Attorney Status Comments Source zoster live 2013 JEAN-CLAUDE [...]
--- OUTSIDE RECORDS SUMMARY | 2024-08-09 09:06 | XMS_ITS | Clinical Summary ---
Author Organization [employer] [facility] Address [place], [place] [address] Care Team Providers Care Aircraft Electronics Technical Officer Name Role Phone Bob Harrison V Unavailable [phone] Shruti Sheikh DO Primary Care Provider [phone] Allergies Active Allergy Reactions Criticality Noted Date Comments Cats (Fur, Dander, Saliva) Shortness Of Breath 04/24/2018 Erythromycin Diarrhea 09/30/2006 Peanut Laryngospasm 09/30/2006 MY THROAT SWELLS UP D And C Red No.22 Tongue Swelling 10/18/2008 Leksypn-Oqn-Twj Reductase Inhibitors Arthralgia 05/13/2012 Sulfa (Sulfonamide Antibiotics) [...] bed. Length of need 99 months. Bed castables worker:no 1 Each 11/05/2023 Active Chair LiftIndications:Fall in [...] rhinitis, unspecified seasonality, unspecified trigger Inhale 1 [place] to both nostrils once daily. 48 g [...] Encounters Date Type Department Care Team Description 08/06/[address] [address] Shruti Sheikh DO Concerns 08/05/2024 Orders Only [facility] Scanner 1 scan: (1-Ord) [place], MULTIPLE LABS, 08/05/2024 08/05/[address] [address] Shruti Sheikh DO Follow Up (patient new diagnosis ) 08/04/[address] [address] Shruti Sheikh DO Anticoagulation (Lab orders) 07/22/[address] [address] Shruti Sheikh DO Anticoagulation (INR OVERDUE REMINDER #4 ) 07/08/[address] [phone] Shruti Sheikh DO Anticoagulation (OVERDUE #3 Reminder ) 06/24/[address] [address] Shruti Sheikh DO Anticoagulation (INR OVERDUE REMINDER #2 ) 05/24/[address] [address] Shruti Sheikh DO Results 05/17/2024 2:30 PM CDT Ancillary Procedure [address] [address] 05/17/2024 1:40 PM CDT Office Visit [facility] [address] [place] [phone] Tameka Edmonds VETO Eye Exam (Diabetic) 05/17/2024 Travel 05/12/2024 1:00 PM CDT Office Visit [address] [address] Shruti Sheikh DO Medicare ANNUAL (subsequent) Visit; Diabetes 05/12/2024 Anticoagulation (warfarin) [address] [place] [address] 1, [facility] Anticoagulation (Provider visit) 05/12/2024 Travel from Last [...] 1 [place]CL[place] Diabetes Other 2 FAMILY H/O (unc le, nephew) Hypertension Other 3 FAMILY H/O [...] st Contact Info) Description 08/09/2024 1:30 PM FEDERAL APPELLATE CLERK Orders Only [address] [phone] Nanci, Pattie 08/10/2024 1:00 PM FEDERAL APPELLATE CLERK Nurse/Clinic Staff Only [address] [address] 08/12/2024 1:40 PM FEDERAL APPELLATE CLERK Office Visit [address] [phone] Shruti Sheikh, [address] [address] 11/17/2024 1:00 PM FEDERAL APPELLATE CLERK Office Visit [address] [place] [address] Shruti Sheikh, [address] [address] Health Maintenance Due Date Last Done Comments [...] 05/17/2024, 03/2017 Medical Devices Implanted Type Area Waiter/Waitress Formal Device Identifier Shelf Expiration Date Model / Serial / Lot Anw Hh [id number] Implanted:Qty: 1 on 09/02/2007 at [facility] Explanted:at [facility] (Quantity not on file) [employer] Implants [facility] [id number] / [id number] / Procedures Procedure Name Priority Date/Time Associated Diagnosis Comments SCAN-LABORATORY REPORT 08/05/2024 12:00 AM FEDERAL APPELLATE CLERK XR DXA BONE DENSITY 2 SITES AXIAL [...] Recently Relevant to Health Maintenance Results * SCAN-LABORATORY REPORT (08/05/2024 12:00 AM FEDERAL APPELLATE CLERK) Scanner OTHER * XR DXA BONE DENSITY 2 SITES [...] and regular exercise. JUAN R MALDONADO M.D. [email or web address] NICHOLAS/cale Narrative 05/19/2024 6:30 AM CDT For Patients: Results are automatically released to your [employer]) account once available, in compliance with federal regulations. This means that you may see your results before your provider has had a chance to review them. Please allow 2-3 business days for your provider to comment on the results. XR DXA Bone Mineral Density (BMD) EXAM LOCATION: [address] [address] PATIENT NAME: Charlotte Boles DATE OF : [...] Denosumab (Prolia) INDICATION: Senile osteoporosis COMPARISON DATE(S): 2017 DXA scans are compared to prior studies for a patient only when the two (or more) studies were performed on the same scanner. It is not possible to compare data generated on one scanner to data from another because there are not standards in DXA equipment. This applies even if the two scanners are made by the same director of strategic communications. PROCEDURE: Dual-energy x-ray absorptiometry performed with routine [...] URINE 69.6 mg/L 05/13/2024 2:31 PM CDT [facility] CREATININE,URIN E 1.38 g/L 05/13/2024 2:31 PM CDT [facility] ALBUMIN TO CREATININE RATIO,RAND UR 50.4(H) <30.0 mg/g creat 05/13/2024 2:31 PM CDT [facility] Urine URINE SPECIMEN / Unknown Non-Blood / Unknown 05/12/2024 2:07 PM CDT 05/12/2024 2:07 PM CDT Narrative [facility] - 05/13/2024 2:31 PM CDT If Albumin to Creatinine Ratio is elevated, consider the following: ? Elevations seen with incipient nephropathy associated ?? with diabetes mellitus or hypertension. Stress, exercise,hematuria, ?? and urinary tract infection may also produce elevated results. If clinically indicated, confirm with ?24 Hour Albumin to Creatinine Ratio. ?? Shruti Sheikh DO URINE [facility] [address] [place] [address], * (ABNORMAL) CBC WITH AUTO DIFFERENTIAL (05/12/2024 12:58 PM T) WHITE BLOOD COUNT 7.3 4.5 - 11.0 thou/cu mm 05/12/2024 1:24 PM [facility] RED BLOOD COUNT 4.89 4.00 - 5.20 mil/cu mm 05/12/2024 1:24 PM [facility] HEMOGLOBIN 15.2 12.0 - 16.0 g/dL 05/12/2024 1:24 PM [facility] HEMATOCRIT 46.2 33.0 - 51.0 % 05/12/2024 1:24 PM [facility] MCV 95 80 - 100 fL 05/12/2024 1:24 PM [facility] MCH 31.1 26.0 - 34.0 pg 05/12/2024 1:24 PM [facility] MCHC 32.9 32.0 - 36.0 g/dL 05/12/2024 1:24 PM [facility] RDW 13.2 11.5 - 15.5 % 05/12/2024 1:24 PM [facility] PLATELET COUNT 184 140 - 440 thou/cu mm 05/12/2024 1:24 PM [facility] MPV 11.5(H) 6.5 - 11.0 fL 05/12/2024 1:24 PM [facility] % NEUT 58.2 % 05/12/2024 1:24 PM [facility] % LYMPH 30.5 % 05/12/2024 1:24 PM [facility] % MONO 7.9 % 05/12/2024 1:24 PM [facility] % EOS 3.1 % 05/12/2024 1:24 PM [facility] % BASO 0.3 % 05/12/2024 1:24 PM [facility] ABSOLUTE NEUTROPHILS 4.3 1.7 - 7.0 thou/cu mm 05/12/2024 1:24 PM [facility] ABSOLUTE LYMPHOCYTES 2.2 0.9 - 2.9 thou/cu mm 05/12/2024 1:24 PM CDT [facility] ABSOLUTE MONOCYTES 0.6 <0.9 thou/cu mm 05/12/2024 1:24 PM CDT [facility] ABSOLUTE EOSINOPHILS 0.2 <0.5 thou/cu mm 05/12/2024 1:24 PM CDT [facility] ABSOLUTE BASOPHILS 0.0 <0.3 thou/cu mm 05/12/2024 1:24 PM CDT [facility] Blood BLOOD SPECIMEN / Unknown Venipuncture / Unknown 05/12/2024 12:58 PM CDT 05/12/2024 12:58 PM CDT Shruti Sheikh DO HEMATOLOGY Performing Organization Address [facility] Co de Phone Number [facility] [address] [place] [address] * TSH WITH REFLEX (05/12/2024 12:58 PM CDT) TSH 3.25 0.27 - 4.20 uIU/mL 05/12/2024 1:29 PM CDT [facility] Blood BLOOD SPECIMEN / Unknown Venipuncture / Unknown 05/12/2024 12:58 PM CDT 05/12/2024 12:58 PM CDT Narrative [facility] - 05/12/2024 1:29 PM CDT In Adults, TSH values between 5.00 and 10.00 uIU/ml do not necessarily indicate the presence of Hypothyroidism. Correlation with clinical findings such as presence of goiter and/or Thyroperoxidase (TPO) Antibody may be helpful. For more information please refer to NADINE 2004; 291: 228-238. Shruti Sheikh DO CHEMISTRY Performing Organization Address [facility] Co de Phone Number [facility] [address] [place] [address] * (ABNORMAL) LIPID PANEL W REFLEX MEASURED LDL (05/12/2024 12:58 PM CDT) CHOLESTEROL,TOTAL 249(H) 100 - 199 mg/dL 05/12/2024 1:29 PM T [facility] Comment: Cholesterol, Total Reference Ranges Desirable <200 mg/dL Borderline 200-239 mg/dL High >=240 mg/dL TRIGLYCERIDES 219(H) <150 mg/dL 05/12/2024 1:29 PM T [facility] HDL CHOLESTEROL 52 >40 mg/dL 1:29 PM T [facility] NON-HDL CHOLESTEROL 197(H) <145 mg/dl 05/12/2024 1:29 PM [facility] CHOL/HDL RATIO 4.79(H) <4.50 05/12/2024 1:29 PM T [facility] LDL CHOLESTEROL 153(H) <=130 mg/dL 05/12/2024 1:29 PM [facility] VLDL CHOLESTEROL 44(H) <=30 mg/dL 05/12/2024 1:29 PM T [facility] PROVIDER ORDERED STATUS RANDOM 05/12/2024 1:29 PM [facility] Blood BLOOD SPECIMEN / Unknown Venipuncture / Unknown 05/12/2024 12:58 PM CDT 05/12/2024 12:58 PM CDT Shruti Sheikh DO CHEMISTRY Performing Organization Address City/State/[facility] Co de Phone Number [facility] [address] [place] [address] * (ABNORMAL) PROTIME-INR (05/12/2024 12:58 PM CDT) INR 3.9(H) <1.3 05/12/2024 1:32 PM T [facility] PROTIME 41.5(H) 10.3 - 12.3 sec 05/12/2024 1:32 PM T [facility] Blood BLOOD SPECIMEN / Unknown Venipuncture / Unknown 05/12/2024 12:58 PM CDT 05/12/2024 12:58 PM CDT [facility] - 05/12/2024 1:32 PM CDT ?Therapeutic [...] Shruti Sheikh DO HEMATOLOGY Performing Organization Address [facility] Co de Phone Number [facility] [address], [place] [id number] * (ABNORMAL) HEMOGLOBIN A1C MONITORING (POCT) (05/12/2024 12:58 PM CDT) [facility] HEMOGLOBIN A1C MONITORING (POCT) 6.6(H) <=6.4 % 05/12/2024 1:06 PM CDT [facility] Blood BLOOD SPECIMEN / Unknown Venipuncture / Unknown 05/12/2024 12:58 PM CDT 05/12/2024 12:58 PM CDT [facility] - 05/12/2024 1:06 PM CDT ? [...] Anemias, Splenectomy ? Shruti Sheikh DO CHEMISTRY Performing Organization Address [facility] Co de Phone Number [facility] [address] [place] [address] * (ABNORMAL) COMP METABOLIC PANEL (05/12/2024 12:58 PM T) SODIUM 136 136 - 145 mmol/L 05/12/2024 1:43 PM [facility] POTASSIUM 4.2 3.5 - 5.1 mmol/L 05/12/2024 1:43 PM [facility] CHLORIDE 100 98 - 107 mmol/L 05/12/2024 1:43 PM [facility] CO2,TOTAL 28 22 - 29 mmol/L 05/12/2024 1:43 PM [facility] ANION GAP 8 5 - 18 05/12/2024 1:43 PM [facility] GLUCOSE 162(H) 70 - 99 mg/dL 05/12/2024 1:43 PM [facility] CALCIUM 9.5 8.8 - 10.2 mg/dL 05/12/2024 1:43 PM [facility] BUN 13 8 - 23 mg/dL 05/12/2024 1:43 PM [facility] CREATININE 1.08(H) 0.50 - 0.90 mg/dL 05/12/2024 1:43 PM [facility] BUN/CREAT RATIO 12 10 - 20 1:43 PM [facility] eGFR 54(L) >90 mL/min/1.7 3m2 05/12/2024 1:43 PM [facility] Comment:As of 2021, eG FR is calculated by the CKD-EPI creatinine equation without race adjustment. ??eGFR can be influenced by muscle mass, exercise, and diet. ??The reported eGFR is an estimation only and is only applicable if the renal function is stable. ALBUMIN 3.7(L) 4.0 - 4.9 g/dL 05/12/2024 1:43 PM [facility] PROTEIN,TOTAL 7.4 6.0 - 8.0 g/dL 05/12/2024 1:43 PM [facility] BILIRUBIN,TOTAL 0.4 0.0 - 1.2 mg/dL 05/12/2024 1:43 PM CDT [facility] ALK PHOSPHATASE 100 35 - 104 IU/L 05/12/2024 1:43 PM CDT [facility] ALT (SGPT) <5(L) 10 - 35 IU/L 05/12/2024 1:43 PM CDT [facility] AST (SGOT) 19 10 - 35 IU/L 05/12/2024 1:43 PM CDT [facility] Blood BLOOD SPECIMEN / Unknown Venipuncture / Unknown 05/12/2024 12:58 PM CDT 05/12/2024 12:58 PM CDT Shruti Sheikh DO CHEMISTRY [facility] [address] [place] [address] * ANTI HCV (03/12/2017 12:59 PM CDT) HEPATITIS C ANTIBODY Non-Reacti ve Non-Reacti ve 03/12/2017 8:44 PM CDT [facility] [employer] [facility] Blood BLOOD SPECIMEN / Unknown Butterfly / Unknown 03/12/2017 12:59 PM CDT 03/12/2017 12:59 PM CDT Narrative [facility] - 03/12/2017 8:44 PM CDT Antibodies to HCV not detected; does not exclude the possibility of exposure to HCV. Shruti Sheikh DO [facility] [address] [place] [address], [place] from Last 3 Months or Most Recently [...] 9:50 AM 09/07/2007 4:09 PM Care Teams Aircraft [employer] Technical Officer Relationship Specialty Start Date End Date Shruti Sheikh DO [address] [place] [address] PCP - General Internal Medicine 10/20/13 Bob Harrison V [address] [place], [place] Associate Doctor 05/13/12
[2024-08-09 09:07] LABS: Alanine Aminotransferase* 623 U/L (4-35); Aspartate Amino Transferase* 1710 U/L (12-35)
--- NOTE | 2024-08-09 10:18 | PC.SOCIAL ---
Social work: Met with myrna, Claudia, at bedside. 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 Claudia shared that she is contacting the few family members pt has and will notify her friends after she notifies family. Myrna is tearful and grieving but capable of following up as needed. Myrna is requesting a [facility] visit and shared that pt was raised [employer] and considers herself Mormon but is not currently connected with a congregation. [facility] in [place] was contacted and received a call back stating [facility] is out of town and suggested calling [facility] in [place] [phone] or [facility] in [place] [phone]. Called [facility] and was informed by staff that power distributor is not available today. Called [facility] and provided information and was informed by staff that they will ccontact the power distributor who will most likely be able to come to the hospital. Awaiting call back from [facility] with arrival time. Myrna states pt requested to be cremated and requested hospital contact [facility] in [place] [phone] after the power distributor visit. Myrna was appreciative of assistance provided.
[2024-08-09 11:03] LABS: Troponin, Point-of-Care* 3.24 ng/ml (0.01-0.04)
== END 2024-08-09 15:46 | disposition expired ==
PROVIDERS: Emergency Provider Family Medicine; PCP Internal Medicine; Visit Provider Family Medicine
DX: I50.9 Heart failure, unspecified (principal)
CPT/HCPCS: 36415; 70450; 71045; 80053; 81001; 82803; 83605; 83880; 84145; 84484; 85025; 85379; 85610; 86140; 87040; 87631; 93005; 94761; 99284; 99291; 99292; J7030